=== PATIENT | female | born 1935 | race Hispanic/Latino ===

== ENCOUNTER 2016-12-12 08:32 | Day surgery (SDC) | payer MEDICARE ==
[2016-05-02 10:02] VITALS: BMI 23.6
[2016-12-12 10:06] VITALS: TEMP 97
[2016-12-12] MEDS ORDERED: Propofol 10 mg/ml Inj (20 ML) ONE ×2 (12:20→12:30)
[2016-12-12 13:11] VITALS: O2SAT 100
[2016-12-12 14:09] VITALS: BP 158/75; PULSE 81; RESP 19
== END 2016-12-12 13:45 | disposition home or self-care (01) ==
LOC: C.ENDO 08:32
PROVIDERS: ATTEND Internal Medicine Gastroenterology
DX: K57.90 Diverticulosis of intestine, part unspecified, without perforation or abscess without bleeding (principal); K64.8 Other hemorrhoids
CPT/HCPCS: 45378; J2704

== ENCOUNTER 2018-09-08 12:03 | Inpatient (IN) | payer MEDICARE ==
[2018-09-08 12:03] VITALS: BMI 23.6
[2018-09-08] MEDS ORDERED: Sodium Chloride 0.9% 500 ML IV ONE ×2 (12:46→13:04)
[2018-09-08 12:53] LABS: BASO # 0.1 K/uL (0.0-0.2); BASO % 0.4 % (0.0-2.0); EOS # 0.1 K/uL (0.0-0.7); EOS % 1.1 % (0.0-4.0); HEMOGLOBIN 9.1 g/dL (11.0-16.0); LYMPH # 0.8 K/uL (1.0-4.3); LYMPH % 6.4 % (20.0-40.0); MEAN CELL VOLUME 90.4 fL (81.0-99.0); MEAN CORPUSCULAR HGB CONC 34.3 g/dL (33.0-37.0); MEAN PLATELET VOLUME 8.8 fL (7.2-11.7); MONO # 1.4 K/uL (0.0-0.8); MONO % 10.7 % (0.0-10.0); NEUT # 10.5 K/uL (1.8-7.0); NEUT % 81.4 % (50.0-75.0); PLATELET COUNT 375 K/uL (130-400); RBC 2.93 Mil/uL (3.80-5.20); RED CELL DISTRIBUTION WIDTH 13.5 % (11.5-14.5)
[2018-09-08 13:06] LABS: ALBUMIN 3.1 g/dL (3.5-5.0)
[2018-09-08 13:54] LABS: BANDS 17 % (0-2); EOSINOPHIL 1 % (0-4); LYMPHOCYTE 9 % (20-40); MONOCYTE 9 % (0-10); NEUTROPHIL 64 % (50-75); TOTAL CELLS COUNTED 100
[2018-09-08 13:55] LABS: PLATELET ESTIMATE NORMAL (NORMAL)
[2018-09-08 13:56] LABS: LARGE PLATELETS PRESENT; TOXIC GRANULATION PRESENT
--- NOTE | 2018-09-08 14:01 | C.PDOC ---
History Of Present Illness 83-year-old female is brought to the ED by family for evaluation of diarrhea that has been intermittent over the past 6 weeks, but worse over the past 3 days. As per family, patient has been having constant diarrhea, and has shown a decrease in appetite and weight loss. Patient was evaluated by her GI doctor, Dr. Cardona, who collected a stool sample, of which the results are still pending. Patient states her diarrhea is often liquid-like with associated abdominal cramping and intermittent GI bleeding in her stool. Patient and family deny fever, chills, recent travel, recent antibiotics use. Time Seen by Provider: 09/08/18 12:54 Chief Complaint (Nursing): Abdominal Pain History Per: Patient, Family History/Exam Limitations: no limitations Onset/Duration Of Symptoms: Intermittent Episodes Current Symptoms Are (Timing): Worse Quality Of Discomfort: Cramping Associated Symptoms: Diarrhea. denies: Fever, Chills Past Medical History Reviewed: Historical Data, Nursing Documentation, Vital Signs Vital Signs: Last Vital Signs Temp 98.4 F 09/08/18 12:08 Pulse 80 09/08/18 12:08 Resp 18 09/08/18 12:08 BP 94/58 L 09/08/18 12:08 Pulse Ox 99 09/08/18 12:08 Primary Care Provider: Bren Munguia - Medical History PMH: Atrial Fibrillation, Colonic Polyps, Diverticulitis, HTN, Osteoporosis Denies: Chronic Kidney Disease Surgical History: No Surg Hx - [facility] Procedures COLONOSCOPY (09/02/02) Family History: States: Unknown Family Hx - Social History Hx Alcohol Use: No Hx Substance Use: No - Immunization History Hx Tetanus Toxoid Vaccination: No Hx Influenza Vaccination: Yes Hx Pneumococcal Vaccination: No Review Of Systems Constitutional: Positive for: Weight loss, Other (decreased appetite ). Negative for: Fever, Chills Gastrointestinal: Positive for: Diarrhea, Other (GI bleeding in stool ) Physical Exam - Physical Exam Appears: Non-toxic, No Acute Distress, Other (thin-appearing ) Skin: Warm, Dry, Pale Head: Atraumatic, Normacephalic Eye(s): bilateral: Normal Inspection Oral Mucosa: Dry Neck: Normal ROM, Supple Chest: Symmetrical, No Deformity, No Tenderness Cardiovascular: Rhythm Regular, No Murmur Respiratory: Normal Breath Sounds, No Rales, No Rhonchi, No Wheezing Gastrointestinal/Abdominal: Bowel Sounds (active), Soft, No Tenderness, No Guarding, No Rebound Back: Normal Inspection, No CVA Tenderness, No Vertebral Tenderness, No Paraspinal Tenderness Extremity: Normal ROM, No Tenderness, Capillary Refill (less than 2 seconds ), No Swelling Neurological/Psych: Oriented x3, Normal Speech, Normal Cognition Gait: Steady ED Course And Treatment - Laboratory Results Result Diagrams: 09/08/18 12:49 09/08/18 12:49 Lab Results: Total Bilirubin 0.4 mg/dL (0.2-1.3) 09/08/18 12:49 AST 19 U/L (14-36) 09/08/18 12:49 ALT 19 U/L (9-52) 09/08/18 12:49 Alkaline Phosphatase 63 U/L (38-126) 09/08/18 12:49 Total Protein 6.1 g/dL (6.3-8.3) L 09/08/18 12:49 Albumin 3.1 g/dL (3.5-5.0) L 09/08/18 12:49 Globulin 3.0 gm/dL (2.2-3.9) 09/08/18 12:49 Albumin/Globulin Ratio 1.0 (1.0-2.1) 09/08/18 12:49 O2 Sat by Pulse Oximetry: 99 (on RA) Pulse Ox Interpretation: Normal Medical Decision Making Medical Decision Making: Progress: Bloodwork, urinalysis, CT A/P, CXR, EKG ordered and reviewed. IV Fluids given. 15:[address] Madison, who is requesting to give patient zosyn and flagyl. Dr. Madison agrees to admit patient. The case was discussed with Dr. Cardona (GI doc) who states to give the patient Vanco 125mg PO QID and he will consult on the patient. Disposition - Disposition Disposition: HOSPITALIZED Disposition Time: 16:25 Condition: GUARDED - POA Present On Arrival: None - Clinical Impression Clinical Impression: Colitis, Dehydration, Diarrhea - PA / SCIENTIFIC GLASS BLOWER / Resident Statement MD/DO has reviewed & agrees with the documentation as recorded. - Scribe Statement The provider has reviewed the documentation as recorded by the Scribe (Shila Ray) All medical record entries made by the Scribe were at my direction and personally dictated by me. I have reviewed the chart and agree that the record accurately reflects my personal performance of the history, physical exam, medical decision making, and the department course for this patient. I have also personally directed, reviewed, and agree with the discharge instructions and disposition.
[2018-09-08 14:27] LABS: VENOUS BLOOD GAS PCO2 43 mmHg (40-60); VENOUS BLOOD GAS PO2 27 mm/Hg (30-55); VENOUS BLOOD PH 7.35 (7.32-7.43)
[2018-09-08] MEDS ORDERED: Sodium Chloride 0.9% 1,000 ML IV ONE (14:39)
[2018-09-08] MEDS ORDERED: Sodium Chloride 0.9% 1,000 ML ONE ×2 (15:28→17:14)
[2018-09-08] MEDS ORDERED: metroNIDAZOLE IV 500 mg/100 ml 500 MG/100 ML BAG IVPB STA (15:39)
[2018-09-08] MEDS ORDERED: Piperacill/Tazo 2.25gm in Dex 2.25 GM/50 ML BAG IVPB STA (15:39)
--- NOTE | 2018-09-08 15:59 | CT ---
Date of service: 09/08/2018 PROCEDURE: CT Abdomen and Pelvis without intravenous contrast HISTORY: diffuse abd pain, diarrhea COMPARISON: 01/17/2017 TECHNIQUE: Technique. Contrast dose: Radiation dose: Total exam DLP = 331.04 mGy-cm. This CT exam was performed using one or more of the following dose reduction techniques: Automated exposure control, adjustment of the mA and/or kV according to patient size, and/or use of iterative reconstruction technique. FINDINGS: LOWER THORAX: Unremarkable. LIVER: Unremarkable. No gross lesion or ductal dilatation. GALLBLADDER AND BILE DUCTS: Unremarkable. PANCREAS: Unremarkable. No gross lesion or ductal dilatation. SPLEEN: Unremarkable. ADRENALS: Unremarkable. No mass. KIDNEYS AND URETERS: Unremarkable. No hydronephrosis. No solid mass. VASCULATURE: Unremarkable. No aortic aneurysm. No aortic atherosclerotic calcification or mural plaque present. BOWEL: Diffuse mild mural thickening of the left colon with luminal narrowing probably representing colitis. APPENDIX: Unremarkable. Normal appendix. PERITONEUM: Unremarkable. No free fluid. No free air. LYMPH NODES: Unremarkable. No enlarged lymph nodes. BLADDER: Unremarkable. REPRODUCTIVE: Unremarkable. BONES: No acute fracture. OTHER FINDINGS: None. IMPRESSION: Diffuse mild mural thickening of the left colon with luminal narrowing probably representing colitis.
[2018-09-08] MEDS ORDERED: metroNIDAZOLE IV 500 mg/100 ml 500 MG/100 ML BAG ONE (16:14)
--- NOTE | 2018-09-08 16:15 | CP.PCM.HP ---
<Gavino Yen - Last Filed: 09/08/18 18:22> History of Present Illness - History of Present Illness History of Present Illness: PGY1 H and P for Dr. Madison Patient is an 83-year-old female with a past medical history of HTN, paroxysmal a fib, seronegative arthritis, diverticulosis, colitis, and hemorrhoids who presents to the emergency department with her daughter for 2 months of diarrhea that has worsened over the past 3 days. Recently, pt reports she has not been able to make it to the bathroom and loses control of her bowels. Patient denies any sick contacts, recent travel or antibiotics use. Patient had a colonscopy 2 years ago which showed diverticulosis and hemorrhoids but was unable to assess further due to poor prep. Patient endorses weight loss over the past few weeks, asspciated with weakness, diarrhea, crampy lower abdominal pain. She endorses decreased urine output for one day. The patient denies fever, chills, headache, lightheadedness, dizziness, night sweats, diaphoresis, syncope, falls, chest pain, palpitations, SOB, cough, dyspnea, nausea, vomiting, constipation, melena, hematochezia, dysuria, hematuria, burning on urination, numbness, and tingling. Pt saw blood dripping after bowel movement 2 months ago, but has resolved since she was given preparation H by her GI Dr. Cardona. The patient currently denies any blood in the stool or black, tarry stools. The patients diarrhea improves with Imodium. The patient did not take her BP medications this morning. Patient had issues with insurance regarding Eliquis, and was going to start Aspirin but has not started due to bleeding. PMH: HTN, paroxysmal a fib confirmed by holter monitor, seronegative arthritis, diverticulosis, colitis, and hemorrhoids Past surgical history: JHOANA about 30 years ago Meds: Amlodipine 5 mg, Valsartan 160 mg PO daily, Metoprolol 25 mg PO QD, Ferrous sulfate 325 mg PO BID, Methotrexate (dose unknown), Calcium, Vitamin D, Folic acid Allergies: denies Family History: unsure Social history: denies tobacco or illicit drugs, occasionally drinks wine with dinner. Lives at home with 55-year-old son. Patient does not use any assistive devices. Patients recently in April and daughter endorses increased sleep and memory loss since. PMD: Dr. Munguia GI: Dr. Cardona Cardio: Dr. Rosalio Coppola Heme: Dr. Ronald Ray Rheum: Dr. Jim Present on Admission - Present on Admission Any Indicators Present on Admission: No Review of Systems - Review of Systems All systems: reviewed and no additional remarkable complaints except (as per HPI) Past Patient History - Past Medical History & Family History Past Medical History?: Yes - Past Social History Smoking Status: Never Smoked - CARDIAC Hx Atrial Fibrillation: Yes Hx Hypertension: Yes - PULMONARY Hx Respiratory Disorders: No - NEUROLOGICAL Hx Neurological Disorder: No - HEENT Hx HEENT Problems: No - RENAL Hx Chronic Kidney Disease: No - ENDOCRINE/METABOLIC Hx Endocrine Disorders: No - HEMATOLOGICAL/ONCOLOGICAL Hx Blood Disorders: No - INTEGUMENTARY Hx Dermatological Problems: No - MUSCULOSKELETAL/RHEUMATOLOGICAL Hx Osteoporosis: Yes - GASTROINTESTINAL Hx Diverticulitis: Yes - GENITOURINARY/GYNECOLOGICAL Hx Genitourinary Disorders: No - PSYCHIATRIC Hx Substance Use: No - SURGICAL HISTORY Hx Surgeries: Yes Hx Angioplasty: Yes Hx Hysterectomy: Yes - ANESTHESIA Hx Anesthesia: Yes Hx Anesthesia Reactions: No Hx Malignant Hyperthermia: No Meds Allergies/Adverse Reactions: Allergies Allergy/AdvReac Type Severity Reaction Status Date / Time No Known Allergies Allergy Verified 09/08/18 12:18 Physical Exam - Constitutional Appears: Non-toxic, No Acute Distress - Head Exam Head Exam: ATRAUMATIC, NORMAL INSPECTION - Eye Exam Eye Exam: EOMI Additional comments: (+) conjunctival pallor - ENT Exam ENT Exam: Mucous Membranes Dry - Neck Exam Neck exam: Positive for: Normal Inspection - Respiratory Exam Respiratory Exam: Clear to Auscultation Bilateral. absent: Rales, Rhonchi, Wheezes, Respiratory Distress, Stridor - Cardiovascular Exam Cardiovascular Exam: REGULAR RHYTHM, +S1, +S2. absent: Tachycardia, Irregular Rhythm, Rubs - GI/Abdominal Exam GI & Abdominal Exam: Normal Bowel Sounds, Soft. absent: Distended, Firm, Guarding, Rebound, Rigid, Tenderness - Rectal Exam Rectal Exam: Deferred - Extremities Exam Extremities exam: Positive for: normal capillary refill, normal inspection, pedal pulses present. Negative for: calf tenderness, pedal edema - Back Exam Back exam: NORMAL INSPECTION. absent: CVA tenderness (L), CVA tenderness (R) - Neurological Exam Neurological exam: Alert, Oriented x3 - Psychiatric Exam Psychiatric exam: Normal Affect, Normal Mood - Skin Skin Exam: Dry, Normal Color, Warm Additional comments: (+) decreased skin turgor Results - Vital Signs Recent Vital Signs: Last Vital Signs Temp 99.3 F 09/08/18 14:30 Pulse 83 09/08/18 14:30 Resp 18 09/08/18 14:30 BP 119/70 09/08/18 14:30 Pulse Ox 99 09/08/18 15:41 - Labs Result Diagrams: 09/08/18 12:49 09/08/18 12:49 Labs: Laboratory Results - last 24 hr 09/08/18 09/08/18 09/08/18 12:49 12:49 14:20 WBC 13.0 H RBC 2.93 L Hgb 9.1 L Hct 26.5 L MCV 90.4 MCH 31.0 MCHC 34.3 RDW 13.5 Plt Count 375 MPV 8.8 Neut % (Auto) 81.4 H Lymph % (Auto) 6.4 L Carlton % (Auto) 10.7 H Eos % (Auto) 1.1 Baso % (Auto) 0.4 Neut # (Auto) 10.5 H Lymph # (Auto) 0.8 L Carlton # (Auto) 1.4 H Eos # (Auto) 0.1 Baso # (Auto) 0.1 Neutrophils % (Manual) 64 Band Neutrophils % 17 H* Lymphocytes % (Manual) 9 L Monocytes % (Manual) 9 Eosinophils % (Manual) 1 Toxic Granulation Present Dohle Bodies Present Platelet Estimate Normal Large Platelets Present RBC Morphology Normal pO2 27 L VBG pH 7.35 VBG pCO2 43 VBG HCO3 22.0 VBG Total CO2 25.0 VBG O2 Sat (Calc) 40.7 VBG Base Excess -2.0 L VBG Potassium 3.6 Glucose 87 Lactate 1.1 Sodium 128 L 132.0 Potassium 3.9 Chloride 94 L 103.0 Carbon Dioxide 24 Anion Gap 14 BUN 39 H Creatinine 1.7 H Est GFR ( Amer) 35 Est GFR (Non-Af Amer) 29 Random Glucose 101 Calcium 8.0 L Phosphorus 3.2 Magnesium 1.9 Total Bilirubin 0.4 AST 19 ALT 19 Alkaline Phosphatase 63 Total Protein 6.1 L Albumin 3.1 L Globulin 3.0 Albumin/Globulin Ratio 1.0 Venous Blood Potassium 3.6 Assessment & Plan - Assessment and Plan (Free Text) Assessment: This is an 83-year-old female with a past medical history of HTN, paroxysmal a fib, seronegative arthritis, diverticulosis, colitis, and hemorrhoids who presents to the emergency department with her daughter for 2 months of diarrhea that has worsened over the past 3 days. Plan: Colitis, acute Hx diverticulitis, colitis Leukocytosis at 13, bandemia of 17 on admission. Afebrile, no tachycardia. Lactate is 1.[address] shows diffuse mild mural thickening of the left colon with luminal narrowing probably representing colitis. Received Flagyl 500 mg IVPB x1, Zosyn 2.25 g IVPB x1 in the ED. Renally dosed Zosyn 2.25 g IVPB q8h (09/08) Lactobacillus BID GI, Dr. Cardona, consulted. F/u lactoferrin, ova and parasite x3, FOBT, stool culture, c. diff, procalcitonin, stool leukocytes, Blood culture x2 SUMA, acute Oliguria, acute Likely secondary to hypotension/prerenal BUN/Cr is 94/1.7 on admission NS IVF as below F/u bladder scan qshift with order to straight cath if retaining urine F/u BMP at 2200 Hypovolemia hyponatremia 128 on admission NS IVF 1L Bolus x2 in the ED, continue NS IVF at 75 mL/hr Fall precautions Hold home valsartan F/u BMP as above Dehydration, secondary to diarrhea due to colitis Pt hypotensive 90s SBP 50s DBP in the ED 100 SBP s/p fluids NS IVF as above Hold home valsartan, amlodipine, metoprolol Continue to monitor Paroxysmal Afib, chronic EKG shows NSR Hold home Metoprolol in light of hypotension CHADSVASC2 score is 2; HASBLED is 1 No ASA as per family because pt is had bleeding hemorrhoids approximately 3 months ago No eliquis due to insurance issues Anemia, chronic Hgb/Hct is 9.1/26.5 on admission (baseline is 9-10) Hold home ferrous sulfate in light of acute infection Continue home Folate 1 mg PO daily F/u FOBT x2 Acute stress disorder, acute Pt's in April. Daughter reports pt has had decreased PO intake and increased sleep since his passing. Continue to monitor May consider Psychiatry consult PPx: GI: not indicated VTE: chemical ppx contraindicated due to anemia, SCDs Lactobacillus Case discussed with Dr. Los Yen PGY1 <Zina Madison V - Last Filed: 09/08/18 23:13> Results - Vital Signs Recent Vital Signs: Last Vital Signs Temp 98.7 F 09/08/18 19:08 Pulse 88 09/08/18 19:08 Resp 20 09/08/18 19:08 BP 107/64 09/08/18 19:08 Pulse Ox 98 09/08/18 19:08 - Labs Result Diagrams: 09/08/18 12:49 09/08/18 12:49 Labs: Laboratory Results - last 24 hr 09/08/18 09/08/18 09/08/18 12:49 12:49 14:20 WBC 13.0 H RBC 2.93 L Hgb 9.1 L Hct 26.5 L MCV 90.4 MCH 31.0 MCHC 34.3 RDW 13.5 Plt Count 375 MPV 8.8 Neut % (Auto) 81.4 H Lymph % (Auto) 6.4 L Carlton % (Auto) 10.7 H Eos % (Auto) 1.1 Baso % (Auto) 0.4 Neut # (Auto) 10.5 H Lymph # (Auto) 0.8 L Carlton # (Auto) 1.4 H Eos # (Auto) 0.1 Baso # (Auto) 0.1 Neutrophils % (Manual) 64 Band Neutrophils % 17 H* Lymphocytes % (Manual) 9 L Monocytes % (Manual) 9 Eosinophils % (Manual) 1 Toxic Granulation Present Dohle Bodies Present Platelet Estimate Normal Large Platelets Present RBC Morphology Normal PT INR APTT pO2 27 L VBG pH 7.35 VBG pCO2 43 VBG HCO3 22.0 VBG Total CO2 25.0 VBG O2 Sat (Calc) 40.7 VBG Base Excess -2.0 L VBG Potassium 3.6 Glucose 87 Lactate 1.1 Crit Value Called To Crit Value Called By Crit Value Read Back Blood Gas Notified Time Sodium 128 L 132.0 Potassium 3.9 Chloride 94 L 103.0 Carbon Dioxide 24 Anion Gap 14 BUN 39 H Creatinine 1.7 H Est GFR ( Amer) 35 Est GFR (Non-Af Amer) 29 Random Glucose 101 Calcium 8.0 L Phosphorus 3.2 Magnesium 1.9 Total Bilirubin 0.4 AST 19 ALT 19 Alkaline Phosphatase 63 Total Protein 6.1 L Albumin 3.1 L Globulin 3.0 Albumin/Globulin Ratio 1.0 Procalcitonin Venous Blood Potassium 3.6 Urine Color Urine Clarity Urine pH Ur Specific Rebuck Urine Protein Urine Glucose (UA) Urine Ketones Urine Blood Urine Nitrate Urine Bilirubin Urine Urobilinogen Ur Leukocyte Esterase Urine WBC (Auto) Urine RBC (Auto) Ur Squamous Epith Cells Hyaline Casts 09/08/18 09/08/18 09/08/18 16:38 17:30 17:30 WBC RBC Hgb Hct MCV MCH MCHC RDW Plt Count MPV Neut % (Auto) Lymph % (Auto) Carlton % (Auto) Eos % (Auto) Baso % (Auto) Neut # (Auto) Lymph # (Auto) Carlton # (Auto) Eos # (Auto) Baso # (Auto) Neutrophils % (Manual) Band Neutrophils % Lymphocytes % (Manual) Monocytes % (Manual) Eosinophils % (Manual) Toxic Granulation Dohle Bodies Platelet Estimate Large Platelets RBC Morphology PT 15.4 H INR 1.4 APTT 31.8 pO2 30 VBG pH 7.35 VBG pCO2 41 VBG HCO3 21.5 VBG Total CO2 23.9 VBG O2 Sat (Calc) 49.4 VBG Base Excess -2.9 L VBG Potassium 6.2 H* Glucose 85 Lactate 1.1 Crit Value Called To Rosy srivasatva rn Crit Value Called By Aiden Crit Value Read Back Y Blood Gas Notified Time 1642 Sodium 130.0 L Potassium Chloride 105.0 Carbon Dioxide Anion Gap BUN Creatinine Est GFR ( Amer) Est GFR (Non-Af Amer) Random Glucose Calcium Phosphorus Magnesium Total Bilirubin AST ALT Alkaline Phosphatase Total Protein Albumin Globulin Albumin/Globulin Ratio Procalcitonin 0.16 L Venous Blood Potassium 6.2 H* Urine Color Urine Clarity Urine pH Ur Specific Rebuck Urine Protein Urine Glucose (UA) Urine Ketones Urine Blood Urine Nitrate Urine Bilirubin Urine Urobilinogen Ur Leukocyte Esterase Urine WBC (Auto) Urine RBC (Auto) Ur Squamous Epith Cells Hyaline Casts 09/08/18 22:06 WBC RBC Hgb Hct MCV MCH MCHC RDW Plt Count MPV Neut % (Auto) Lymph % (Auto) Carlton % (Auto) Eos % (Auto) Baso % (Auto) Neut # (Auto) Lymph # (Auto) Carlton # (Auto) Eos # (Auto) Baso # (Auto) Neutrophils % (Manual) Band Neutrophils % Lymphocytes % (Manual) Monocytes % (Manual) Eosinophils % (Manual) Toxic Granulation Dohle Bodies Platelet Estimate Large Platelets RBC Morphology PT INR APTT pO2 VBG pH VBG pCO2 VBG HCO3 VBG Total CO2 VBG O2 Sat (Calc) VBG Base Excess VBG Potassium Glucose Lactate Crit Value Called To Crit Value Called By Crit Value Read Back Blood Gas Notified Time Sodium Potassium Chloride Carbon Dioxide Anion Gap BUN Creatinine Est GFR ( Amer) Est GFR (Non-Af Amer) Random Glucose Calcium Phosphorus Magnesium Total Bilirubin AST ALT Alkaline Phosphatase Total Protein Albumin Globulin Albumin/Globulin Ratio Procalcitonin Venous Blood Potassium Urine Color Yellow Urine Clarity Hazy Urine pH 5.0 Ur Specific Rebuck 1.017 Urine Protein Negative Urine Glucose (UA) Normal Urine Ketones Trace Urine Blood Negative Urine Nitrate Negative Urine Bilirubin Negative Urine Urobilinogen Normal Ur Leukocyte Esterase 1+ H Urine WBC (Auto) 19 H Urine RBC (Auto) 3 Ur Squamous Epith Cells 7 H Hyaline Casts 6-10 H Attending/Attestation - Attestation I have personally seen and examined this patient.: Yes I have fully participated in the care of the patient.: Yes I have reviewed all pertinent clinical information: Yes Notes (Text): This is an 83-year-old with prior history of seronegative rheumatoid arthritis, prior history of diverticulitis and history of paroxysmal atrial fibrillation is currently not on any Eliquis or aspirin due to recent rectal bleeding. Patient noted of chronic diarrhea for about 6 weeks and has worsened over the past 2days she reports that she is been having imbalance and ends up able to making the bathroom and pooping on herself. Patient has been doing her regular diet is mainly Chinese which includes salads and cold cuts. Patient lives with her son but also has 4 other children as well who are involved in her life. Patient's also recently passed she reports she has good social system in terms of community from her hindu and from her family. Per review of EMR patient has had chronic anemia when she takes iron supplementation has had a endoscopy by Dr. Brendan concepcion in the past as well. Updated assessment and plan as written by the resident Assessment/plan 1. Colitis, acute Prior history Hx diverticulitis, colitis On admission leukocytosis at 13, bandemia of 17 on admission. Afebrile, no tachycardia. Lactate is 1.[address] shows diffuse mild mural thickening of the left colon with luminal narrowing probably representing colitis. Received Flagyl 500 mg IVPB x1, Zosyn 2.25 g IVPB x1 in the ED. Renally dosed Zosyn 2.25 g IVPB q8h (09/08) Lactobacillus BID GI, Dr. Cardona, consulted. Patient's GI GI doorperson F/u lactoferrin, ova and parasite x3, FOBT, stool culture, c. diff, procalcitonin, stool leukocytes, Blood culture x2 She does have a prior history of rectal bleeding likely hemorrhoidal when she is Preparation H 2. SUMA, acute Oliguria, acute Likely secondary to dehydration secondary to diarrhea BUN/Cr is 94/1.7 on admission He has received 2 L boluses we will continue maintenance fluids NS IVF as below F/u bladder scan qshift with order to straight cath if retaining urine F/u BMP at 2200 improvement in creatinine 3. Hypovolemia hyponatremia Patient appears clinically dehydrated 128 on admission NS IVF 1L Bolus x2 in the ED, continue NS IVF at 75 mL/hr We will continue IV maintenance fluids Fall precautions Hold home valsartan F/u BMP as above 4. Dehydration, secondary to diarrhea due to colitis Pt hypotensive 90s SBP 50s DBP in the ED 100 SBP s/p fluids NS IVF as above Hold home valsartan, amlodipine, metoprolol Continue to monitor 5. Paroxysmal Afib, chronic Dr. Coppola as an outpatient when she was diagnosed with paroxysmal atrial fibrillation based on noted complaint of palpitations at [facility] ent EKG shows NSR Hold home Metoprolol in light of hypotension. May need to restart low-dose metoprolol pending blood pressure CHADSVASC2 score is 2; HASBLED is 1 No ASA as per family because pt is had bleeding hemorrhoids approximately 3 months ago No eliquis due to insurance issues To follow-up with GI to see when patient will be able to use at least aspirin 6. Anemia, chronic Hgb/Hct is 9.1/26.5 on admission (baseline is 9-10) Hold home ferrous sulfate in light of acute infection Continue home Folate 1 mg PO daily F/u FOBT x2 Check ferritin and iron studies and reticulocyte count 7. Bereavement; acute stress disorder, acute Pt's in April. Daughter reports pt has had decreased PO intake and increased sleep since his passing. Continue to monitor Pastoral care consult May consider Psychiatry consult 8. PPx: GI: Pepcid 20 mg IV twice daily VTE: chemical ppx contraindicated due to anemia, SCDs Lactobacillus 1 tab p.o. twice daily
[2018-09-08 16:42] LABS: VENOUS BLOOD GAS BASE EXCESS -2.9 mmol/L (0.0-2.0); VENOUS BLOOD GAS PCO2 41 mmHg (40-60); VENOUS BLOOD GAS PO2 30 mm/Hg (30-55); VENOUS BLOOD PH 7.35 (7.32-7.43)
--- NOTE | 2018-09-08 16:49 | RAD ---
HISTORY: Sepsis Patient COMPARISON: None available. TECHNIQUE: Chest, one view. FINDINGS: LUNGS: No focal consolidation. Please note that chest x-ray has limited sensitivity for the detection of pulmonary masses. PLEURA: No significant pleural effusion identified. No definite pneumothorax . CARDIOVASCULAR: Cardiomegaly. Atherosclerotic calcifications present. OSSEOUS STRUCTURES: Demineralization. Degenerative changes. VISUALIZED UPPER ABDOMEN: Unremarkable. OTHER FINDINGS: None. IMPRESSION: No focal consolidation. Cardiomegaly. Atherosclerotic calcifications present.
[2018-09-08] MEDS ORDERED: Sodium Chloride 0.9% 1,000 ML IV SCH (17:15)
[2018-09-08 17:42] LABS: INR 1.4; PARTIAL THROMBOPLASTIN TIME 31.8 SECONDS (21-34); PROTHROMBIN TIME 15.4 SECONDS (9.7-12.2)
[2018-09-08] MEDS: Sodium Chloride 0.9% 1,000 ML IV SCH (17:50)
[2018-09-08] MEDS ORDERED: Vancomycin Hydrochloride 125 mg Capsule (Oral) PO SCH (18:00)
[2018-09-08] MEDS: Lactobacillus Acidophilus 500 MU Cap PO SCH (18:38)
[2018-09-08 19:08] VITALS: RESP 20
[2018-09-08 22:40] LABS: SQUAMOUS EPITHIAL 7 /hpf (0-5); URINE BILIRUBIN NEGATIVE (NEGATIVE); URINE BLOOD NEGATIVE (NEGATIVE); URINE CLARITY Hazy (Clear); URINE GLUCOSE (UA) NORMAL (Normal); URINE LEUKOCYTE ESTERASE 1+ Leu/uL (Negative); URINE PROTEIN NEGATIVE (NEGATIVE); URINE UROBILINOGEN NORMAL mg/dL (0.2-1.0)
[2018-09-08 22:41] LABS: URINE COLOR YELLOW (YELLOW)
[2018-09-08 23:58] LABS: BLOOD UREA NITROGEN 34 mg/dL (7-17); CALCIUM 7.3 mg/dl (8.6-10.4); GFR NON-AFRICAN AMERICAN 36
[2018-09-09 01:29] LABS: FOLATE > 20.0 ng/mL
[2018-09-09] MEDS: Piperacill/Tazo 2.25gm in Dex 2.25 GM/50 ML BAG IVPB SCH ×3 (01:44→17:55)
[2018-09-09] MEDS: Sodium Chloride 0.9% 1,000 ML IV SCH ×3 (06:40→21:14)
[2018-09-09 08:31] LABS: ALB/GLOB RATIO 0.9 (1.0-2.1); ALBUMIN 2.6 g/dL (3.5-5.0); CALCIUM 7.3 mg/dl (8.6-10.4)
[2018-09-09 08:40] LABS: IRON 20 ug/dL (37-170)
--- NOTE | 2018-09-09 08:44 | CP.PCM.CON ---
<Hayley Jones - Last Filed: 09/09/18 08:46> History of Present Illness - History of Present Illness History of Present Illness: GI Fellow PGY5 Consult Note This is a 83-year-old female with a past medical history of HTN, paroxysmal a fib, seronegative arthritis, diverticulosis, colitis, and hemorrhoids who presents to the emergency department for 2 months of diarrhea that has worsened over the past 3 days. Recently, pt reports she has not been able to make it to the bathroom and loses control of her bowels. Patient denies any sick contacts, recent travel or antibiotics use. Patient had a 2 colonoscopies in 2017 which showed diverticulosis and hemorrhoids but was unable to assess further due to poor prep. Patient endorses weight loss over the past few weeks, associated with weakness, diarrhea, crampy lower abdominal pain. She denies constipation, melena, hematochezia. ROS:A 12pt ROS was negative except as above PMH:As stated above Past surgical history: JHOANA about 30 years ago Family History: unsure Social history: denies tobacco or illicit drugs, occasionally drinks wine with dinner Past Patient History - Past Medical History & Family History Past Medical History?: Yes - Past Social History Smoking Status: Never Smoked - CARDIAC Hx Cardiac Disorders: Yes Hx Atrial Fibrillation: Yes Hx Hypertension: Yes - PULMONARY Hx Respiratory Disorders: No - NEUROLOGICAL Hx Neurological Disorder: No - HEENT Hx HEENT Problems: No - RENAL Hx Chronic Kidney Disease: No - ENDOCRINE/METABOLIC Hx Endocrine Disorders: No - HEMATOLOGICAL/ONCOLOGICAL Hx Blood Disorders: No - INTEGUMENTARY Hx Dermatological Problems: No - MUSCULOSKELETAL/RHEUMATOLOGICAL Hx Musculoskeletal Disorders: Yes Hx Falls: No Hx Osteoporosis: Yes - GASTROINTESTINAL Hx Gastrointestinal Disorders: Yes Hx Diverticulitis: Yes - GENITOURINARY/GYNECOLOGICAL Hx Genitourinary Disorders: No - PSYCHIATRIC Hx Substance Use: No - SURGICAL HISTORY Hx Surgeries: Yes Hx Angioplasty: Yes Hx Hysterectomy: Yes - ANESTHESIA Hx Anesthesia: Yes Hx Anesthesia Reactions: No Hx Malignant Hyperthermia: No Has any member of the family had a problem w/ anesthesia?: No Meds Allergies/Adverse Reactions: Allergies Allergy/AdvReac Type Severity Reaction Status Date / Time No Known Allergies Allergy Verified 09/08/18 12:18 - Medications Medications: Current Medications Ergocalciferol (Drisdol 50,000 Intl Units Cap) 1 cap PO QWK [facility] Famotidine (Pepcid) 20 mg IVP DAILY [facility] Folic Acid (Folic Acid) 1 mg PO DAILY [facility] Sodium Chloride (Sodium Chloride 0.9%) 1,000 mls @ 75 mls/hr IV .[id number] [facility] Last Admin: 09/09/18 06:40 Dose: Not Given Piperacillin Sod/Tazobactam Sod (Zosyn 2.25 Gm Iv Premix) 2.25 gm in 50 mls @ 100 mls/hr IVPB Q8H [facility]; Protocol Last Admin: 09/09/18 01:44 Dose: 100 mls/hr Lactobacillus Acidophilus (Lactobacillus) 1 cap PO BID [facility] Last Admin: 09/08/18 18:38 Dose: Not Given Physical Exam - Constitutional Appears: Non-toxic, No Acute Distress - Head Exam Head Exam: ATRAUMATIC, NORMAL INSPECTION, NORMOCEPHALIC - Eye Exam Eye Exam: EOMI, Normal appearance, PERRL - ENT Exam ENT Exam: Mucous Membranes Moist, Normal Exam - Neck Exam Neck exam: Positive for: Full Rom, Normal Inspection - Respiratory Exam Respiratory Exam: Clear to Auscultation Bilateral, NORMAL BREATHING PATTERN - Cardiovascular Exam Cardiovascular Exam: REGULAR RHYTHM, RRR, +S1, +S2 - GI/Abdominal Exam GI & Abdominal Exam: Normal Bowel Sounds, Soft, Tenderness. absent: Distended, Organomegaly - Rectal Exam Rectal Exam: Deferred - Extremities Exam Extremities exam: Positive for: full ROM, normal inspection - Neurological Exam Neurological exam: Alert, Oriented x3 - Psychiatric Exam Psychiatric exam: Normal Affect, Normal Mood - Skin Skin Exam: Dry, Intact, Normal Color, Warm Results - Vital Signs Recent Vital Signs: Last Vital Signs Temp 97.9 F 09/09/18 07:00 Pulse 93 H 09/09/18 07:00 Resp 20 09/09/18 07:00 BP 105/60 09/09/18 07:00 Pulse Ox 97 09/09/18 07:00 - Labs Result Diagrams: 09/08/18 12:49 09/09/18 08:03 Labs: Laboratory Results - last 24 hr 09/08/18 09/08/18 09/08/18 12:49 12:49 14:20 WBC 13.0 H RBC 2.93 L Hgb 9.1 L Hct 26.5 L MCV 90.4 MCH 31.0 MCHC 34.3 RDW 13.5 Plt Count 375 MPV 8.8 Neut % (Auto) 81.4 H Lymph % (Auto) 6.4 L [place] % (Auto) 10.7 H Eos % (Auto) 1.1 Baso % (Auto) 0.4 Neut # (Auto) 10.5 H Lymph # (Auto) 0.8 L [place] # (Auto) 1.4 H Eos # (Auto) 0.1 Baso # (Auto) 0.1 Neutrophils % (Manual) 64 Band Neutrophils % 17 H* Lymphocytes % (Manual) 9 L Monocytes % (Manual) 9 Eosinophils % (Manual) 1 Toxic Granulation Present Dohle Bodies Present Platelet Estimate Normal Large Platelets Present RBC Morphology Normal Retic Count PT INR APTT pO2 27 L VBG pH 7.35 VBG pCO2 43 VBG HCO3 22.0 VBG Total CO2 25.0 VBG O2 Sat (Calc) 40.7 VBG Base Excess -2.0 L VBG Potassium 3.6 Glucose 87 Lactate 1.1 Crit Value Called To Crit Value Called By Crit Value Read Back Blood Gas Notified Time Sodium 128 L 132.0 Potassium 3.9 Chloride 94 L 103.0 Carbon Dioxide 24 Anion Gap 14 BUN 39 H Creatinine 1.7 H Est GFR ( Amer) 35 Est GFR (Non-Af Amer) 29 Random Glucose 101 Calcium 8.0 L Phosphorus 3.2 Magnesium 1.9 Iron Ferritin Total Bilirubin 0.4 AST 19 ALT 19 Alkaline Phosphatase 63 Total Protein 6.1 L Albumin 3.1 L Globulin 3.0 Albumin/Globulin Ratio 1.0 Vitamin B12 Folate Procalcitonin Venous Blood Potassium 3.6 Urine Color Urine Clarity Urine pH Ur Specific [place] Urine Protein Urine Glucose (UA) Urine Ketones Urine Blood Urine Nitrate Urine Bilirubin Urine Urobilinogen Ur Leukocyte Esterase Urine WBC (Auto) Urine RBC (Auto) Ur Squamous Epith Cells Hyaline Casts 09/08/18 09/08/18 09/08/18 16:38 17:30 17:30 WBC RBC Hgb Hct MCV MCH MCHC RDW Plt Count MPV Neut % (Auto) Lymph % (Auto) [place] % (Auto) Eos % (Auto) Baso % (Auto) Neut # (Auto) Lymph # (Auto) [place] # (Auto) Eos # (Auto) Baso # (Auto) Neutrophils % (Manual) Band Neutrophils % Lymphocytes % (Manual) Monocytes % (Manual) Eosinophils % (Manual) Toxic Granulation Dohle Bodies Platelet Estimate Large Platelets RBC Morphology Retic Count PT 15.4 H INR 1.4 APTT 31.8 pO2 30 VBG pH 7.35 VBG pCO2 41 VBG HCO3 21.5 VBG Total CO2 23.9 VBG O2 Sat (Calc) 49.4 VBG Base Excess -2.9 L VBG Potassium 6.2 H* Glucose 85 Lactate 1.1 Crit Value Called To Rosy srivastava rn Crit Value Called By Aiden Crit Value Read Back Y Blood Gas Notified Time 1642 Sodium 130.0 L Potassium Chloride 105.0 Carbon Dioxide Anion Gap BUN Creatinine Est GFR ( Amer) Est GFR (Non-Af Amer) Random Glucose Calcium Phosphorus Magnesium Iron Ferritin Total Bilirubin AST ALT Alkaline Phosphatase Total Protein Albumin Globulin Albumin/Globulin Ratio Vitamin B12 Folate Procalcitonin 0.16 L Venous Blood Potassium 6.2 H* Urine Color Urine Clarity Urine pH Ur Specific [place] Urine Protein Urine Glucose (UA) Urine Ketones Urine Blood Urine Nitrate Urine Bilirubin Urine Urobilinogen Ur Leukocyte Esterase Urine WBC (Auto) Urine RBC (Auto) Ur Squamous Epith Cells Hyaline Casts 09/08/18 09/08/18 09/09/18 22:06 23:15 08:03 WBC RBC Hgb Hct MCV MCH MCHC RDW Plt Count MPV Neut % (Auto) Lymph % (Auto) [place] % (Auto) Eos % (Auto) Baso % (Auto) Neut # (Auto) Lymph # (Auto) [place] # (Auto) Eos # (Auto) Baso # (Auto) Neutrophils % (Manual) Band Neutrophils % Lymphocytes % (Manual) Monocytes % (Manual) Eosinophils % (Manual) Toxic Granulation Dohle Bodies Platelet Estimate Large Platelets RBC Morphology Retic Count PT INR APTT pO2 VBG pH VBG pCO2 VBG HCO3 VBG Total CO2 VBG O2 Sat (Calc) VBG Base Excess VBG Potassium Glucose Lactate Crit Value Called To Crit Value Called By Crit Value Read Back Blood Gas Notified Time Sodium 131 L 133 Potassium 3.6 3.9 Chloride 101 102 Carbon Dioxide 20 L 22 Anion Gap 13 12 BUN 34 H 29 H Creatinine 1.4 H 1.3 H Est GFR ( Amer) 44 48 Est GFR (Non-Af Amer) 36 39 Random Glucose 85 73 Calcium 7.3 L 7.3 L Phosphorus 2.3 L Magnesium 2.0 Iron Ferritin 104.0 Total Bilirubin 0.2 AST 16 ALT 20 Alkaline Phosphatase 60 Total Protein 5.3 L Albumin 2.6 L Globulin 2.7 Albumin/Globulin Ratio 0.9 L Vitamin B12 > 1000 H Folate > 20.0 Procalcitonin Venous Blood Potassium Urine Color Yellow Urine Clarity Hazy Urine pH 5.0 Ur Specific [place] 1.017 Urine Protein Negative Urine Glucose (UA) Normal Urine Ketones Trace Urine Blood Negative Urine Nitrate Negative Urine Bilirubin Negative Urine Urobilinogen Normal Ur Leukocyte Esterase 1+ H Urine WBC (Auto) 19 H Urine RBC (Auto) 3 Ur Squamous Epith Cells 7 H Hyaline Casts 6-10 H 09/09/18 09/09/18 08:17 08:17 WBC RBC Hgb Hct MCV MCH MCHC RDW Plt Count MPV Neut % (Auto) Lymph % (Auto) [place] % (Auto) Eos % (Auto) Baso % (Auto) Neut # (Auto) Lymph # (Auto) [place] # (Auto) Eos # (Auto) Baso # (Auto) Neutrophils % (Manual) Band Neutrophils % Lymphocytes % (Manual) Monocytes % (Manual) Eosinophils % (Manual) Toxic Granulation Dohle Bodies Platelet Estimate Large Platelets RBC Morphology Retic Count 1.6 H PT INR APTT pO2 VBG pH VBG pCO2 VBG HCO3 VBG Total CO2 VBG O2 Sat (Calc) VBG Base Excess VBG Potassium Glucose Lactate Crit Value Called To Crit Value Called By Crit Value Read Back Blood Gas Notified Time Sodium Potassium Chloride Carbon Dioxide Anion Gap BUN Creatinine Est GFR ( Amer) Est GFR (Non-Af Amer) Random Glucose Calcium Phosphorus Magnesium Iron 20 L Ferritin Total Bilirubin AST ALT Alkaline Phosphatase Total Protein Albumin Globulin Albumin/Globulin Ratio Vitamin B12 Folate Procalcitonin Venous Blood Potassium Urine Color Urine Clarity Urine pH Ur Specific [place] Urine Protein Urine Glucose (UA) Urine Ketones Urine Blood Urine Nitrate Urine Bilirubin Urine Urobilinogen Ur Leukocyte Esterase Urine WBC (Auto) Urine RBC (Auto) Ur Squamous Epith Cells Hyaline Casts Assessment & Plan - Assessment and Plan (Free Text) Assessment: 1. Abdominal pain, diarrhea 2. Colitis 2. SUMA 3. Chronic Anemia Plan: On admission leukocytosis at 13, bandemia of 17 on admission. Afebrile, no tachycardia. Lactate is 1.[address] shows diffuse mild mural thickening of the left colon with luminal narrowing probably representing colitis. Pt on Zosyn F/u stool culture, c. diff, Blood culture x2 She does have a prior history of rectal bleeding likely hemorrhoids IVF for SUMA, monitor Cr, Likely secondary to dehydration secondary to diarrhea Anemia, with Hgb stable, no active GI bleeding Clear liquid diet Will need outpt colonoscopy in 6-8 wks after colitis Will continue to follow pt closely <Aidan Cardona - Last Filed: 09/09/18 17:49> Meds - Medications Medications: Current Medications Calcium/Vitamin D (Oscal-D 250 Mg-125 Units Tab) 1 tab PO DAILY [facility] Famotidine (Pepcid) 20 mg IVP DAILY [facility] Last Admin: 09/09/18 09:34 Dose: 20 mg Folic Acid (Folic Acid) 1 mg PO DAILY [facility] Last Admin: 09/09/18 09:35 Dose: 1 mg Sodium Chloride (Sodium Chloride 0.9%) 1,000 mls @ 75 mls/hr IV .[id number] [facility] Last Admin: 09/09/18 09:42 Dose: 75 mls/hr Piperacillin Sod/Tazobactam Sod (Zosyn 2.25 Gm Iv Premix) 2.25 gm in 50 mls @ 100 mls/hr IVPB Q8H [facility]; Protocol Last Admin: 09/09/18 09:39 Dose: 100 mls/hr Metronidazole (Flagyl) 500 mg in 100 mls @ 100 mls/hr IVPB Q8H [facility]; Protocol Last Admin: 09/09/18 11:59 Dose: 100 mls/hr Lactobacillus Acidophilus (Lactobacillus) 1 cap PO BID [facility] Last Admin: 09/09/18 09:35 Dose: 1 cap Results - Vital Signs Recent Vital Signs: Last Vital Signs Temp 98.3 F 09/09/18 16:09 Pulse 85 09/09/18 16:09 Resp 20 09/09/18 16:09 BP 113/66 09/09/18 16:09 Pulse Ox 95 09/09/18 16:09 - Labs Result Diagrams: 09/09/18 08:03 09/09/18 08:03 Labs: Laboratory Results - last 24 hr 09/08/18 09/08/18 09/08/18 08:17 16:17 17:30 WBC RBC Hgb Hct MCV MCH MCHC RDW Plt Count MPV Neut % (Auto) Lymph % (Auto) [place] % (Auto) Eos % (Auto) Baso % (Auto) Neut # (Auto) Lymph # (Auto) [place] # (Auto) Eos # (Auto) Baso # (Auto) Neutrophils % (Manual) Lymphocytes % (Manual) Monocytes % (Manual) Eosinophils % (Manual) Platelet Estimate Hypochromasia (manual) Poikilocytosis (manual Anisocytosis (manual) Retic Count Sodium Potassium Chloride Carbon Dioxide Anion Gap BUN Creatinine Est GFR ( Amer) Est GFR (Non-Af Amer) Random Glucose Serum Osmolality Calcium Phosphorus Magnesium Iron TIBC % Saturation 11 L Ferritin Total Bilirubin AST ALT Alkaline Phosphatase Total Protein Albumin Globulin Albumin/Globulin Ratio Vitamin B12 Folate Procalcitonin 0.16 L Urine Color Urine Clarity Urine pH Ur Specific [place] Urine Protein Urine Glucose (UA) Urine Ketones Urine Blood Urine Nitrate Urine Bilirubin Urine Urobilinogen Ur Leukocyte Esterase Urine WBC (Auto) Urine RBC (Auto) Ur Squamous Epith Cells Hyaline Casts Urine Osmolality Stool Occult Blood Stool Leukocytes, Qual Positive H C. difficile Ag & Toxin 09/08/18 09/08/18 09/09/18 22:06 23:15 04:59 WBC RBC Hgb Hct MCV MCH MCHC RDW Plt Count MPV Neut % (Auto) Lymph % (Auto) [place] % (Auto) Eos % (Auto) Baso % (Auto) Neut # (Auto) Lymph # (Auto) [place] # (Auto) Eos # (Auto) Baso # (Auto) Neutrophils % (Manual) Lymphocytes % (Manual) Monocytes % (Manual) Eosinophils % (Manual) Platelet Estimate Hypochromasia (manual) Poikilocytosis (manual Anisocytosis (manual) Retic Count Sodium 131 L Potassium 3.6 Chloride 101 Carbon Dioxide 20 L Anion Gap 13 BUN 34 H Creatinine 1.4 H Est GFR ( Amer) 44 Est GFR (Non-Af Amer) 36 Random Glucose 85 Serum Osmolality Calcium 7.3 L Phosphorus Magnesium Iron TIBC % Saturation Ferritin 104.0 Total Bilirubin AST ALT Alkaline Phosphatase Total Protein Albumin Globulin Albumin/Globulin Ratio Vitamin B12 > 1000 H Folate > 20.0 Procalcitonin Urine Color Yellow Urine Clarity Hazy Urine pH 5.0 Ur Specific [place] 1.017 Urine Protein Negative Urine Glucose (UA) Normal Urine Ketones Trace Urine Blood Negative Urine Nitrate Negative Urine Bilirubin Negative Urine Urobilinogen Normal Ur Leukocyte Esterase 1+ H Urine WBC (Auto) 19 H Urine RBC (Auto) 3 Ur Squamous Epith Cells 7 H Hyaline Casts 6-10 H Urine Osmolality Stool Occult Blood Stool Leukocytes, Qual C. difficile Ag & Toxin Negative 09/09/18 09/09/18 09/09/18 08:03 08:03 08:17 WBC 8.1 RBC 2.62 L Hgb 8.2 L Hct 23.9 L MCV 91.0 MCH 31.4 H MCHC 34.5 RDW 13.5 Plt Count 307 MPV 9.4 Neut % (Auto) 81.1 H Lymph % (Auto) 6.9 L [place] % (Auto) 9.6 Eos % (Auto) 1.9 Baso % (Auto) 0.5 Neut # (Auto) 6.5 Lymph # (Auto) 0.6 L [place] # (Auto) 0.8 Eos # (Auto) 0.2 Baso # (Auto) 0.0 Neutrophils % (Manual) 83 H Lymphocytes % (Manual) 7 L Monocytes % (Manual) 9 Eosinophils % (Manual) 1 Platelet Estimate Normal Hypochromasia (manual) Moderate Poikilocytosis (manual Slight Anisocytosis (manual) Slight Retic Count Sodium 133 Potassium 3.9 Chloride 102 Carbon Dioxide 22 Anion Gap 12 BUN 29 H Creatinine 1.3 H Est GFR ( Amer) 48 Est GFR (Non-Af Amer) 39 Random Glucose 73 Serum Osmolality Calcium 7.3 L Phosphorus 2.3 L Magnesium 2.0 Iron 20 L TIBC 180 L % Saturation 11 L Ferritin Total Bilirubin 0.2 AST 16 ALT 20 Alkaline Phosphatase 60 Total Protein 5.3 L Albumin 2.6 L Globulin 2.7 Albumin/Globulin Ratio 0.9 L Vitamin B12 Folate Procalcitonin Urine Color Urine Clarity Urine pH Ur Specific [place] Urine Protein Urine Glucose (UA) Urine Ketones Urine Blood Urine Nitrate Urine Bilirubin Urine Urobilinogen Ur Leukocyte Esterase Urine WBC (Auto) Urine RBC (Auto) Ur Squamous Epith Cells Hyaline Casts Urine Osmolality Stool Occult Blood Stool Leukocytes, Qual C. difficile Ag & Toxin 09/09/18 09/09/18 09/09/18 08:17 08:17 08:32 WBC RBC Hgb Hct MCV MCH MCHC RDW Plt Count MPV Neut % (Auto) Lymph % (Auto) [place] % (Auto) Eos % (Auto) Baso % (Auto) Neut # (Auto) Lymph # (Auto) [place] # (Auto) Eos # (Auto) Baso # (Auto) Neutrophils % (Manual) Lymphocytes % (Manual) Monocytes % (Manual) Eosinophils % (Manual) Platelet Estimate Hypochromasia (manual) Poikilocytosis (manual Anisocytosis (manual) Retic Count 1.6 H Sodium Potassium Chloride Carbon Dioxide Anion Gap BUN Creatinine Est GFR ( Amer) Est GFR (Non-Af Amer) Random Glucose Serum Osmolality 282 Calcium Phosphorus Magnesium Iron TIBC % Saturation Ferritin Total Bilirubin AST ALT Alkaline Phosphatase Total Protein Albumin Globulin Albumin/Globulin Ratio Vitamin B12 Folate Procalcitonin Urine Color Urine Clarity Urine pH Ur Specific [place] Urine Protein Urine Glucose (UA) Urine Ketones Urine Blood Urine Nitrate Urine Bilirubin Urine Urobilinogen Ur Leukocyte Esterase Urine WBC (Auto) Urine RBC (Auto) Ur Squamous Epith Cells Hyaline Casts Urine Osmolality 440 Stool Occult Blood Stool Leukocytes, Qual C. difficile Ag & Toxin 09/09/18 08:44 WBC RBC Hgb Hct MCV MCH MCHC RDW Plt Count MPV Neut % (Auto) Lymph % (Auto) [place] % (Auto) Eos % (Auto) Baso % (Auto) Neut # (Auto) Lymph # (Auto) [place] # (Auto) Eos # (Auto) Baso # (Auto) Neutrophils % (Manual) Lymphocytes % (Manual) Monocytes % (Manual) Eosinophils % (Manual) Platelet Estimate Hypochromasia (manual) Poikilocytosis (manual Anisocytosis (manual) Retic Count Sodium Potassium Chloride Carbon Dioxide Anion Gap BUN Creatinine Est GFR ( Amer) Est GFR (Non-Af Amer) Random Glucose Serum Osmolality Calcium Phosphorus Magnesium Iron TIBC % Saturation Ferritin Total Bilirubin AST ALT Alkaline Phosphatase Total Protein Albumin Globulin Albumin/Globulin Ratio Vitamin B12 Folate Procalcitonin Urine Color Urine Clarity Urine pH Ur Specific [place] Urine Protein Urine Glucose (UA) Urine Ketones Urine Blood Urine Nitrate Urine Bilirubin Urine Urobilinogen Ur Leukocyte Esterase Urine WBC (Auto) Urine RBC (Auto) Ur Squamous Epith Cells Hyaline Casts Urine Osmolality Stool Occult Blood Positive H Stool Leukocytes, Qual C. difficile Ag & Toxin Attending/Attestation - Attestation I have personally seen and examined this patient.: Yes I have fully participated in the care of the patient.: Yes I have reviewed all pertinent clinical information: Yes Notes (Text): 09/09/18 17:44 I have seen and examined patient. Agree with above documentation with the following additions. In brief, this is an 83 year old female with history of HTN, paroxysmal atrial fibrillation, diverticulosis who presents to hospital with complaint of progressive diarrhea and fatigue. She reports worsening diarrhea over the past 3 days though symptoms for the past one month. She had outpatient stool testing performed 10 days ago which was negative. She reports fatigue and having bowel movements up to 3-4 times daily with incontinence episodes. She denies nausea, vomiting, fever/chills, or rectal bleeding. No reported sick contacts, travel, or antibiotic use. She had attempted colon oscopy twice in 2017 which showed suboptimal bowel preparation on both instances. Today, she reports no bowel movements and is tolerating PO liquids without difficulty. Diarrhea - colitis of unclear etiology Iron deficiency anemia Paroxysmal atrial fibrillation HTN - Liquid diet as tolerated - Continue with antibiotic therapy - Await results of stool studies - Will consider inpatient colonoscopy if patient clinical symptoms have not improved over next 48 hours. Will continue to monitor patient clinical course. 09/09/18 17:49
[2018-09-09 08:48] LABS: % IRON SATURATION 11 (20-55); TOTAL IRON BINDING CAPACITY 180 ug/dL (250-450)
[2018-09-09 08:57] LABS: BASO % 0.5 % (0.0-2.0); EOS # 0.2 K/uL (0.0-0.7); EOS % 1.9 % (0.0-4.0); HEMOGLOBIN 8.2 g/dL (11.0-16.0); LYMPH # 0.6 K/uL (1.0-4.3); LYMPH % 6.9 % (20.0-40.0); MEAN CORPUSCULAR HEMOGLOBIN 31.4 pg (27.0-31.0); MEAN CORPUSCULAR HGB CONC 34.5 g/dL (33.0-37.0); MEAN PLATELET VOLUME 9.4 fL (7.2-11.7); MONO # 0.8 K/uL (0.0-0.8); MONO % 9.6 % (0.0-10.0); NEUT # 6.5 K/uL (1.8-7.0); NEUT % 81.1 % (50.0-75.0); RBC 2.62 Mil/uL (3.80-5.20); RED CELL DISTRIBUTION WIDTH 13.5 % (11.5-14.5); WHITE BLOOD COUNT 8.1 K/uL (4.8-10.8)
[2018-09-09 08:59] LABS: PLATELET COUNT 307 K/uL (130-400)
[2018-09-09] MEDS: Lactobacillus Acidophilus 500 MU Cap PO SCH ×2 (09:35→17:53)
[2018-09-09 09:37] LABS: EOSINOPHIL 1 % (0-4); LYMPHOCYTE 7 % (20-40); MONOCYTE 9 % (0-10); NEUTROPHIL 83 % (50-75); PLATELET ESTIMATE NORMAL (NORMAL); TOTAL CELLS COUNTED 100
[2018-09-09 09:45] LABS: ANISOCYTOSIS SLIGHT; HYPOCHROMIC MODERATE; POIKILOCYTOSIS SLIGHT
[2018-09-09] MEDS: metroNIDAZOLE IV 500 mg/100 ml 500 MG/100 ML BAG IVPB SCH ×2 (11:59→19:45)
--- NOTE | 2018-09-09 15:50 | CP.PCM.PN ---
<Cesar Cuellar - Last Filed: 09/09/18 16:02> Subjective - Date & Time of Evaluation Date of Evaluation: 09/09/18 Time of Evaluation: 16:16 - Subjective Subjective: PGY-[address] Madison Patient seen and examined at bedside. No acute events overnight. Patient advanced to clear liquid diet, tolerating. Patient no longer c/o abdominal pain at this time. She does still admit to watery stools. Denies nausea or vomiting. Denies chest pain, headache, shortness of breath, dizziness, numbness. Objective - Vital Signs/Intake and Output Vital Signs (last 24 hours): Temp Pulse Resp BP Pulse Ox 97.9 F 93 H 20 105/60 97 09/09/18 07:00 09/09/18 07:00 09/09/18 07:00 09/09/18 07:00 09/09/18 07:00 Intake and Output: 09/09/18 09/09/18 06:59 18:59 Intake Total 900 Output Total 601 Balance 299 - Medications Medications: Current Medications Calcium/Vitamin D (Oscal-D 250 Mg-125 Units Tab) 1 tab PO DAILY [facility] Ergocalciferol (Drisdol 50,000 Intl Units Cap) 1 cap PO QWK [facility] Famotidine (Pepcid) 20 mg IVP DAILY [facility] Last Admin: 09/09/18 09:34 Dose: 20 mg Folic Acid (Folic Acid) 1 mg PO DAILY [facility] Last Admin: 09/09/18 09:35 Dose: 1 mg Sodium Chloride (Sodium Chloride 0.9%) 1,000 mls @ 75 mls/hr IV .[id number] [facility] Last Admin: 09/09/18 09:42 Dose: 75 mls/hr Piperacillin Sod/Tazobactam Sod (Zosyn 2.25 Gm Iv Premix) 2.25 gm in 50 mls @ 100 mls/hr IVPB Q8H [facility]; Protocol Last Admin: 09/09/18 09:39 Dose: 100 mls/hr Metronidazole (Flagyl) 500 mg in 100 mls @ 100 mls/hr IVPB Q8H [facility]; Protocol Last Admin: 09/09/18 11:59 Dose: 100 mls/hr Lactobacillus Acidophilus (Lactobacillus) 1 cap PO BID [facility] Last Admin: 09/09/18 09:35 Dose: 1 cap - Labs Labs: 09/09/18 08:03 09/09/18 08:03 PT 15.4 SECONDS (9.7-12.2) H 09/08/18 17:30 INR 1.4 09/08/18 17:30 APTT 31.8 SECONDS (21-34) 09/08/18 17:30 - Constitutional Appears: Non-toxic, No Acute Distress - Head Exam Head Exam: ATRAUMATIC, NORMOCEPHALIC - Eye Exam Eye Exam: EOMI, Normal appearance - ENT Exam ENT Exam: Mucous Membranes Moist - Respiratory Exam Respiratory Exam: Clear to Ausculation Bilateral, NORMAL BREATHING PATTERN. absent: Rhonchi, Wheezes - Cardiovascular Exam Cardiovascular Exam: REGULAR RHYTHM, +S1, +S2 - GI/Abdominal Exam GI & Abdominal Exam: Soft, Normal Bowel Sounds. absent: Tenderness - Extremities Exam Extremities Exam: Normal Inspection. absent: Pedal Edema, Tenderness - Neurological Exam Neurological Exam: Alert, Awake, Oriented x3 - Psychiatric Exam Psychiatric exam: Normal Affect, Normal Mood - Skin Skin Exam: Dry, Intact Assessment and Plan - Assessment and Plan (Free Text) Assessment: This is an 83-year-old female with a past medical history of HTN, paroxysmal a fib, seronegative arthritis, diverticulosis, colitis, and hemorrhoids who presented initiall to the emergency department with her daughter for 2 months of diarrhea that has worsened over the past [address] a/p c/w acute colitis. Patient with active but stable GI bleed, GI following. Plan: Colitis, acute; GI Bleed Imaging -Abdominal CT 09/09: diffuse mild mural thickening of the left colon with luminal narrowing probably representing colitis. -Hx diverticulitis, colitis -Leukocytosis at 13, bandemia of 17 on admission. Afebrile, no tachycardia. Initial lactate 1.1 -Lactobacillus BID -F/u lactoferrin, , stool culture, stool leukocytes -C diff negative -Procalcitonin 0.16 -Stool leukocytes positive Micro -ova and parasite x3 - negative -Stool cx- f/u -Blood cultures negative x24 hours -GI, Dr. Cardona, consulted --Diet advanced to [facility]D --Per GI, GI bleed is stable (patient had recent outpatient colonoscopy) Abx -Renally dosed Zosyn 2.25 g IVPB q8h (09/08) Meds -Protonix 20mg IV BID SUMA, acute; Oliguria, acute; Hypocalcemia -Likely secondary to hypotension/prerenal -BUN/Cr is 94/1.7 on admission -Bladder scan qshift with order to straight cath if retaining urine (note patient has been retaining urine) -BUN/Cr improving Meds -NS IVF @ 75 cc/hr -Calcium Carbonate/Vit D once daily Anemia, acute on chronic -Hgb/Hct is 9.1/26.5 on admission (baseline is 9-10) -Hold home ferrous sulfate in light of acute infection -Continue home Folate 1 mg PO daily -FOBT +. F/u repeat. GI following Meds -Protonix 20mg IV BID Hypovolemia hyponatremia -128 on admission -NS IVF 1L Bolus x2 in the ED, continue NS IVF at 75 mL/hr -Fall precautions -Hold home valsartan Dehydration, secondary to diarrhea due to colitis -Pt hypotensive 90s SBP 50s DBP in the ED -100 SBP, stable, fluids at 75/hr -NS IVF as above -Hold home valsartan, amlodipine, metoprolol -Continue to monitor Paroxysmal Afib, chronic -EKG shows NSR -Hold home Metoprolol in light of hypotension -CHADSVASC2 score is 2; HASBLED is 1 -No ASA as per family because pt is had bleeding hemorrhoids approximately 3 months ago -No eliquis due to insurance issues Acute stress disorder, acute -Pt's in April. Daughter reports pt has had decreased PO intake and increased sleep since his passing. -Continue to monitor -May consider Psychiatry consult PPx: -GI: Protonix 20 mg IV BID -VTE: chemical ppx contraindicated due to anemia, SCDs -Lactobacillus Case discussed with Dr. Los Cuellar, PGY-1 <Zina Madison V - Last Filed: 09/09/18 22:18> Objective - Vital Signs/Intake and Output Vital Signs (last 24 hours): Temp Pulse Resp BP Pulse Ox 98.3 F 85 20 113/66 95 09/09/18 16:09 09/09/18 16:09 09/09/18 16:09 09/09/18 16:09 09/09/18 16:09 Intake and Output: 05/21/19 05/22/19 18:59 06:59 Intake Total 965 Output Total 900 Balance 65 - Medications Medications: Current Medications Calcium/Vitamin D (Oscal-D 250 Mg-125 Units Tab) 1 tab PO DAILY [facility] Famotidine (Pepcid) 20 mg IVP DAILY [facility] Last Admin: 09/09/18 09:34 Dose: 20 mg Folic Acid (Folic Acid) 1 mg PO DAILY [facility] Last Admin: 09/09/18 09:35 Dose: 1 mg Sodium Chloride (Sodium Chloride 0.9%) 1,000 mls @ 75 mls/hr IV .[id number] [facility] Last Admin: 09/09/18 21:14 Dose: Not Given Piperacillin Sod/Tazobactam Sod (Zosyn 2.25 Gm Iv Premix) 2.25 gm in 50 mls @ 100 mls/hr IVPB Q8H [facility]; Protocol Last Admin: 09/09/18 17:55 Dose: 100 mls/hr Metronidazole (Flagyl) 500 mg in 100 mls @ 100 mls/hr IVPB Q8H [facility]; Protocol Last Admin: 09/09/18 19:45 Dose: 100 mls/hr Lactobacillus Acidophilus (Lactobacillus) 1 cap PO BID [facility] Last Admin: 09/09/18 17:53 Dose: 1 cap - Labs Labs: 09/09/18 08:03 09/09/18 08:03 PT 15.4 SECONDS (9.7-12.2) H 09/08/18 17:30 INR 1.4 09/08/18 17:30 APTT 31.8 SECONDS (21-34) 09/08/18 17:30 Attending/Attestation - Attestation I have personally seen and examined this patient.: Yes I have fully participated in the care of the patient.: Yes I have reviewed all pertinent clinical information, including history, physical exam and plan: Yes Notes (Text): Patient seen, examined case discussed with certified medical coder. Patient seen this morning with her daughter present at bedside. Patient in better spirits. Patient reporting no longer has the runs in terms of her diarrhea. I did speak with her nurse at bedside patient does have watery d iarrhea but appears to be more formed. Patient is noted to be looking much better how I saw originally in the emergency room. While on antibiotic white count has normalized she has not had a fever overnight bands have cleared we are awaiting stool samples. She is noted for possible occult blood and positive leukocytes in the stool. C. difficile is negative. Creatinine is improving while on IV fluids as supplementation. Likely patient is dehydrated from the diarrhea. There is a plan for a future outpatient colonoscopy in 6 to 8 weeks. I did speak with the GI and it is unclear what the etiology is to the colitis but likely she will need a repeat of this study. We are hoping if patient continues to improve and we will be able to discharge her tomorrow. Notably blood cultures are negative. She is on day 2 of Zosyn. Update assessment and plan noted below Assessment/plan 1. Colitis, acute Prior history Hx diverticulitis, colitis On admission leukocytosis at 13, bandemia of 17 on admission. Afebrile, no tachycardia. Lactate is 1.[address] shows diffuse mild mural thickening of the left colon with luminal narrowing probably representing colitis. Received Flagyl 500 mg IVPB x1, Zosyn 2.25 g IVPB x1 in the ED. Renally dosed Zosyn 2.25 g IVPB q8h (09/08) Lactobacillus BID GI, Dr. Cardona, consulted. Patient's GI GI disposition clerk F/u lactoferrin, ova and parasite x3, FOBT, stool culture, c. diff, procalcitonin, stool leukocytes, Blood culture x2 She does have a prior history of rectal bleeding likely hemorrhoidal when she is Preparation H 2. SUMA, acute Oliguria, acute Likely secondary to dehydration secondary to diarrhea BUN/Cr is 94/1.7 on admission * Improving to 1.4 He has received 2 L boluses we will continue maintenance fluids NS IVF as below 3. Hypovolemia hyponatremia Patient appears clinically dehydrated 128 on admission * Improving while on IV fluids NS IVF 1L Bolus x2 in the ED, continue NS IVF at 75 mL/hr We will continue IV maintenance fluids Fall precautions 4. Dehydration, secondary to diarrhea due to colitis Pt hypotensive 90s SBP 50s DBP in the ED Improving while on IV fluids 5. Paroxysmal Afib, chronic Dr. Coppola as an outpatient when she was diagnosed with paroxysmal atrial fibrillation based on [facility] E[facility] shows NSR Hold home Metoprolol in light of hypotension. May need to restart low-dose metoprolol pending blood pressure CHADSVASC2 score is 2; HASBLED is 1 No ASA as per family because pt is had bleeding hemorrhoids approximately 3 months ago No eliquis due to insurance issues To follow-up with GI to see when patient will be able to use at least aspirin: Hemoglobin is slowly downtrending. Ferritin is within normal she will likely need to continue iron supplementation unclear if patient can resume at least an aspirin or not pain patient GI is working towards her outpatient colonoscopy in the future 6. Anemia, chronic Hgb/Hct is 9.1/26.5 on admission (baseline is 9-10) * Downtrending slightly will need to continue monitoring Hold home ferrous sulfate in light of acute infection Continue home Folate 1 mg PO daily Ferritin within normal Reticulocyte index is low Occult blood is positive 7. Bereavement; acute stress disorder, acute Patient has a very supportive sister in terms of her children as well as her oriental orthodox Pt's in April. Daughter reports pt has had decreased PO intake and increased sleep since his passing. Continue to monitor Pastoral care consult Will hold off for psychiatry at this time 8. PPx: GI: Pepcid 20 mg IV twice daily VTE: chemical ppx contraindicated due to anemia, SCDs Lactobacillus 1 tab p.o. twice daily Disposition: Patient to remain in hospital to benefit from IV fluids for dehydration secondary to diarrhea. Patient to continue to benefit from IV antibiotic however however unclear etiology to colitis. We will follow-up on to see if patient is appropriate for possible discharge with p.o. antibiotic and follow-up with GI for repeat colonoscopy for 6 to 8 weeks
[2018-09-10] MEDS: Piperacill/Tazo 2.25gm in Dex 2.25 GM/50 ML BAG IVPB SCH ×3 (02:12→17:15)
[2018-09-10] MEDS: Sodium Chloride 0.9% 1,000 ML IV SCH ×2 (02:15→10:51)
[2018-09-10] MEDS: metroNIDAZOLE IV 500 mg/100 ml 500 MG/100 ML BAG IVPB SCH ×3 (03:05→19:30)
[2018-09-10 07:09] LABS: ALBUMIN 2.4 g/dL (3.5-5.0); ALT/SGPT 19 U/L (9-52); AST/SGOT 16 U/L (14-36); BLOOD UREA NITROGEN 19 mg/dL (7-17); CALCIUM 6.9 mg/dl (8.6-10.4); GFR NON-AFRICAN AMERICAN > 60
[2018-09-10 07:45] LABS: BASO % 0.2 % (0.0-2.0); EOS # 0.3 K/uL (0.0-0.7); EOS % 5.2 % (0.0-4.0); LYMPH # 0.7 K/uL (1.0-4.3); LYMPH % 9.9 % (20.0-40.0); MEAN CELL VOLUME 90.6 fL (81.0-99.0); MEAN CORPUSCULAR HEMOGLOBIN 30.2 pg (27.0-31.0); MEAN CORPUSCULAR HGB CONC 33.4 g/dL (33.0-37.0); MEAN PLATELET VOLUME 9.2 fL (7.2-11.7); MONO # 0.6 K/uL (0.0-0.8); MONO % 9.6 % (0.0-10.0); NEUT % 75.1 % (50.0-75.0); PLATELET COUNT 295 K/uL (130-400); RBC 2.64 Mil/uL (3.80-5.20); RED CELL DISTRIBUTION WIDTH 13.7 % (11.5-14.5); WHITE BLOOD COUNT 6.6 K/uL (4.8-10.8)
--- NOTE | 2018-09-10 08:21 | CP.PCM.PN ---
<Robert,Hayley - Last Filed: 09/10/18 08:19> Subjective - Date & Time of Evaluation Date of Evaluation: 09/10/18 Time of Evaluation: 06:50 - Subjective Subjective: GI Fellow PGY5 Progress Note Pt seen and evaluated at bedside, pt reports no BM overnight, watery BM decreased frequency. No appetite. ROS: A 12pt ROS was negative except as above. Objective - Vital Signs/Intake and Output Vital Signs (last 24 hours): Temp Pulse Resp BP Pulse Ox 97.5 F L 70 20 132/77 97 09/10/18 07:35 09/10/18 07:35 09/10/18 07:35 09/10/18 07:35 09/10/18 07:35 Intake and Output: 09/10/18 09/10/18 06:59 18:59 Intake Total 1810 Output Total 305 Balance 1505 - Medications Medications: Current Medications Calcium/Vitamin D (Oscal-D 250 Mg-125 Units Tab) 1 tab PO DAILY [facility] Famotidine (Pepcid) 20 mg IVP DAILY [facility] Last Admin: 09/09/18 09:34 Dose: 20 mg Folic Acid (Folic Acid) 1 mg PO DAILY [facility] Last Admin: 09/09/18 09:35 Dose: 1 mg Sodium Chloride (Sodium Chloride 0.9%) 1,000 mls @ 75 mls/hr IV .[id number] [facility] Last Admin: 09/10/18 02:15 Dose: 75 mls/hr Piperacillin Sod/Tazobactam Sod (Zosyn 2.25 Gm Iv Premix) 2.25 gm in 50 mls @ 100 mls/hr IVPB Q8H [facility]; Protocol Last Admin: 09/10/18 02:12 Dose: 100 mls/hr Metronidazole (Flagyl) 500 mg in 100 mls @ 100 mls/hr IVPB Q8H [facility]; Protocol Last Admin: 09/10/18 03:05 Dose: 100 mls/hr Lactobacillus Acidophilus (Lactobacillus) 1 cap PO BID [facility] Last Admin: 09/09/18 17:53 Dose: 1 cap - Labs Labs: 09/10/18 06:40 09/10/18 06:40 PT 15.4 SECONDS (9.7-12.2) H 09/08/18 17:30 INR 1.4 09/08/18 17:30 APTT 31.8 SECONDS (21-34) 09/08/18 17:30 - Constitutional Appears: Non-toxic, No Acute Distress - Head Exam Head Exam: ATRAUMATIC, NORMAL INSPECTION, NORMOCEPHALIC - Eye Exam Eye Exam: EOMI, Normal appearance, PERRL Pupil Exam: PERRL - ENT Exam ENT Exam: Mucous Membranes Moist, Normal Exam - Neck Exam Neck Exam: Full ROM, Normal Inspection - Respiratory Exam Respiratory Exam: Clear to Ausculation Bilateral, NORMAL BREATHING PATTERN - Cardiovascular Exam Cardiovascular Exam: REGULAR RHYTHM, +S1, +S2 - GI/Abdominal Exam GI & Abdominal Exam: Soft, Normal Bowel Sounds. absent: Tenderness - Extremities Exam Extremities Exam: Full ROM, Normal Inspection - Back Exam Back Exam: NORMAL INSPECTION - Neurological Exam Neurological Exam: Alert, Awake, Oriented x3 - Psychiatric Exam Psychiatric exam: Normal Affect, Normal Mood - Skin Skin Exam: Dry, Intact, Normal Color, Warm Assessment and Plan - Assessment and Plan (Free Text) Assessment: 1. Abdominal pain, diarrhea 2. Colitis 2. SUMA 3. Chronic Anemia Plan: On admission leukocytosis at 13, bandemia of 17 on admission, improving WBC Abdominal CT shows diffuse mild mural thickening of the left colon with luminal narrowing probably representing colitis. Pt on Zosyn and started IV flagyl Stool studies in the office were negative 2 weeks ago and so far c diff negative She does have a prior history of rectal bleeding likely hemorrhoids IVF for SUMA, monitor Cr, Likely secondary to dehydration secondary to diarrhea Anemia, with Hgb stable, no active GI bleeding Advance diet as tolerated Will need outpt colonoscopy in 6-8 wks after colitis, pt currently refusing inpt colonoscopy Will continue to follow pt closely <Aidan Cardona - Last Filed: 09/10/18 15:11> Objective - Vital Signs/Intake and Output Vital Signs (last 24 hours): Temp Pulse Resp BP Pulse Ox 97.5 F L 70 20 132/77 97 09/10/18 07:35 09/10/18 07:35 09/10/18 07:35 09/10/18 07:35 09/10/18 07:35 Intake and Output: 09/10/18 09/10/18 06:59 18:59 Intake Total 1810 550 Output Total 305 Balance 1505 550 - Medications Medications: Current Medications Calcium/Vitamin D (Oscal-D 250 Mg-125 Units Tab) 1 tab PO DAILY [facility] Last Admin: 09/10/18 10:38 Dose: 1 tab Famotidine (Pepcid) 20 mg IVP DAILY [facility] Last Admin: 09/10/18 10:39 Dose: 20 mg Folic Acid (Folic Acid) 1 mg PO DAILY [facility] Last Admin: 09/10/18 10:39 Dose: 1 mg Sodium Chloride (Sodium Chloride 0.9%) 1,000 mls @ 75 mls/hr IV .[id number] [facility] Last Admin: 09/10/18 10:51 Dose: Not Given Piperacillin Sod/Tazobactam Sod (Zosyn 2.25 Gm Iv Premix) 2.25 gm in 50 mls @ 100 mls/hr IVPB Q8H [facility]; Protocol Last Admin: 09/10/18 11:24 Dose: 100 mls/hr Metronidazole (Flagyl) 500 mg in 100 mls @ 100 mls/hr IVPB Q8H [facility]; Protocol Last Admin: 09/10/18 10:40 Dose: 100 mls/hr Potassium Phosphate 15 mmole/ (Sodium Chloride) 255 mls @ 42.5 mls/hr IVPB ONCE ONE Stop: 09/10/18 15:59 Last Admin: 09/10/18 10:50 Dose: 42.5 mls/hr Lactobacillus Acidophilus (Lactobacillus) 1 cap PO BID [facility] Last Admin: 09/10/18 10:34 Dose: 1 cap - Labs Labs: 09/10/18 06:40 09/10/18 06:40 PT 15.4 SECONDS (9.7-12.2) H 09/08/18 17:30 INR 1.4 09/08/18 17:30 APTT 31.8 SECONDS (21-34) 09/08/18 17:30 Attending/Attestation - Attestation I have personally seen and examined this patient.: Yes I have fully participated in the care of the patient.: Yes I have reviewed all pertinent clinical information, including history, physical exam and plan: Yes Notes (Text): 09/10/18 15:08 I have seen and examined patient with GI fellow. No acute events overnight, her stool frequency has decreased and she is tolerating PO diet without difficulty. She denies abdominal pain, nausea, vomiting, fever/chills. Review of vitals from today are normal. Diarrhea, colitis Anemia Acute renal insufficiency - resolved - Advance diet as tolerated - Continue with antibiotic therapy - Awaiting results of stool studies - Patient would benefit from outpatient colonoscopy 6-8 weeks following resolution of acute symptoms
[2018-09-10] MEDS ORDERED: Potassium Chloride 20 mEq ER Tab PO SCH (09:00)
[2018-09-10 09:25] LABS: BANDS 4 % (0-2); EOSINOPHIL 6 % (0-4); MONOCYTE 11 % (0-10); TOTAL CELLS COUNTED 100
[2018-09-10 09:26] LABS: ANISOCYTOSIS SLIGHT; HYPOCHROMIC SLIGHT; LYMPHOCYTE 11 % (20-40); NEUTROPHIL 68 % (50-75); PLATELET ESTIMATE NORMAL (NORMAL); POIKILOCYTOSIS SLIGHT
[2018-09-10 09:28] LABS: TARGET CELLS SLIGHT
[2018-09-10] MEDS ORDERED: Potassium Phosphate 15 MMOLE in Sodium Chloride 0.9% 250 ML IVPB ONE (10:00)
[2018-09-10] MEDS ORDERED: Calcium-Vit D 250 mg-125 Units Tab UD PO SCH (10:00)
[2018-09-10] MEDS: Lactobacillus Acidophilus 500 MU Cap PO SCH ×2 (10:34→17:13)
[2018-09-10] MEDS: Calcium-Vit D 250 mg-125 Units Tab UD PO SCH (10:38)
--- NOTE | 2018-09-10 13:29 | CP.PCM.DIS ---
<Cesar Cuellar - Last Filed: 09/11/18 13:04> Provider - Provider Date of Admission: 09/08/18 16:28 Attending physician: Zina Madison DO Consults: 09/08/18 16:34 Gastroenterology Consult Routine Comment: Consulting Provider: Aidan Cardona Consulting Physician: Aidan Cardona Reason for Consult: colitis, known to service Time Spent in preparation of Discharge (in minutes): 45 Hospital Course - Lab Results Lab Results: Micro Results 09/08/18 16:14 Urine,Clean Catch Urine Culture - Final <10,000 CFU/ML. MULTIPLE SPECIES. PROBABLE CONTAMINATION. 09/09/18 11:00 Stool Ova and Parasite Concentrate Exam - Final 09/08/18 13:50 Blood Blood Culture - Preliminary NO GROWTH AFTER 24 HOURS 09/08/18 14:00 Blood Blood Culture - Preliminary NO GROWTH AFTER 24 HOURS Most Recent Lab Values WBC 6.6 K/uL (4.8-10.8) 09/10/18 06:40 RBC 2.64 Mil/uL (3.80-5.20) L 09/10/18 06:40 Hgb 8.0 g/dL (11.0-16.0) L 09/10/18 06:40 Hct 23.9 % (34.0-47.0) L 09/10/18 06:40 MCV 90.6 fL (81.0-99.0) 09/10/18 06:40 MCH 30.2 pg (27.0-31.0) 09/10/18 06:40 MCHC 33.4 g/dL (33.0-37.0) 09/10/18 06:40 RDW 13.7 % (11.5-14.5) 09/10/18 06:40 Plt Count 295 K/uL (130-400) 09/10/18 06:40 MPV 9.2 fL (7.2-11.7) 09/10/18 06:40 Neut % (Auto) 75.1 % (50.0-75.0) H 09/10/18 06:40 Lymph % (Auto) 9.9 % (20.0-40.0) L 09/10/18 06:40 Morton % (Auto) 9.6 % (0.0-10.0) 09/10/18 06:40 Eos % (Auto) 5.2 % (0.0-4.0) H 09/10/18 06:40 Baso % (Auto) 0.2 % (0.0-2.0) 09/10/18 06:40 Neut # (Auto) 5.0 K/uL (1.8-7.0) 09/10/18 06:40 Lymph # (Auto) 0.7 K/uL (1.0-4.3) L 09/10/18 06:40 Morton # (Auto) 0.6 K/uL (0.0-0.8) 09/10/18 06:40 Eos # (Auto) 0.3 K/uL (0.0-0.7) 09/10/18 06:40 Baso # (Auto) 0.0 K/uL (0.0-0.2) 09/10/18 06:40 Neutrophils % (Manual) 68 % (50-75) 09/10/18 06:40 Band Neutrophils % 4 % (0-2) H 09/10/18 06:40 Lymphocytes % (Manual) 11 % (20-40) L 09/10/18 06:40 Monocytes % (Manual) 11 % (0-10) H 09/10/18 06:40 Eosinophils % (Manual) 6 % (0-4) H 09/10/18 06:40 Toxic Granulation Present 09/08/18 12:49 Dohle Bodies Present 09/08/18 12:49 Platelet Estimate Normal (NORMAL) 09/10/18 06:40 Large Platelets Present 09/08/18 12:49 RBC Morphology Normal 09/08/18 12:49 Hypochromasia (manual) Slight 09/10/18 06:40 Poikilocytosis (manual Slight 09/10/18 06:40 Anisocytosis (manual) Slight 09/10/18 06:40 Target Cells Slight 09/10/18 06:40 Retic Count 1.6 % (0.5-1.5) H 09/09/18 08:17 PT 15.4 SECONDS (9.7-12.2) H 09/08/18 17:30 INR 1.4 09/08/18 17:30 APTT 31.8 SECONDS (21-34) 09/08/18 17:30 pO2 30 mm/Hg (30-55) 09/08/18 16:38 VBG pH 7.35 (7.32-7.43) 09/08/18 16:38 VBG pCO2 41 mmHg (40-60) 09/08/18 16:38 VBG HCO3 21.5 mmol/L 09/08/18 16:38 VBG Total CO2 23.9 mmol/L (22-28) 09/08/18 16:38 VBG O2 Sat (Calc) 49.4 % (40-65) 09/08/18 16:38 VBG Base Excess -2.9 mmol/L (0.0-2.0) L 09/08/18 16:38 VBG Potassium 6.2 mmol/L (3.6-5.2) H* 09/08/18 16:38 Sodium 130.0 mmol/l (132-148) L 09/08/18 16:38 Chloride 105.0 mmol/L (98-107) 09/08/18 16:38 Glucose 85 mg/dl (65-105) 09/08/18 16:38 Lactate 1.1 mmol/L (0.7-2.1) 09/08/18 16:38 Crit Value Called To Rosy srivastava rn 09/08/18 16:38 Crit Value Called By Aiden 09/08/18 16:38 Crit Value Read Back Y 09/08/18 16:38 Blood Gas Notified Time 1642 09/08/18 16:38 Sodium 131 mmol/L (132-148) L 09/10/18 06:40 Potassium 3.0 mmol/L (3.6-5.2) L 09/10/18 06:40 Chloride 106 mmol/L (98-107) 09/10/18 06:40 Carbon Dioxide 22 mmol/L (22-30) 09/10/18 06:40 Anion Gap 7 (10-20) L 09/10/18 06:40 BUN 19 mg/dL (7-17) H 09/10/18 06:40 Creatinine 0.9 mg/dL (0.7-1.2) 09/10/18 06:40 Est GFR ( Amer) > 60 09/10/18 06:40 Est GFR (Non-Af Amer) > 60 09/10/18 06:40 Random Glucose 92 mg/dL (65-105) D 09/10/18 06:40 Serum Osmolality 282 mosm/kg (272-300) 09/09/18 08:17 Calcium 6.9 mg/dl (8.6-10.4) L 09/10/18 06:40 Phosphorus 1.2 mg/dL (2.5-4.5) L 09/10/18 06:40 Magnesium 2.0 mg/dL (1.6-2.3) 09/10/18 06:40 Iron 20 ug/dL (37-170) L 09/09/18 08:17 TIBC 180 ug/dL (250-450) L 09/09/18 08:17 % Saturation 11 (20-55) L 09/09/18 08:17 Ferritin 104.0 ng/mL 09/08/18 23:15 Total Bilirubin 0.2 mg/dL (0.2-1.3) 09/10/18 06:40 AST 16 U/L (14-36) 09/10/18 06:40 ALT 19 U/L (9-52) 09/10/18 06:40 Alkaline Phosphatase 55 U/L (38-126) 09/10/18 06:40 Total Protein 4.9 g/dL (6.3-8.3) L 09/10/18 06:40 Albumin 2.4 g/dL (3.5-5.0) L 09/10/18 06:40 Globulin 2.5 gm/dL (2.2-3.9) 09/10/18 06:40 Albumin/Globulin Ratio 1.0 (1.0-2.1) 09/10/18 06:40 Vitamin B12 > 1000 pg/mL (239-931) H 09/08/18 23:15 25-OH Vitamin D Total 47.4 NG/ML (30.0-100.0) 09/10/18 07:28 Folate > 20.0 ng/mL 09/08/18 23:15 Procalcitonin 0.16 NG/ML (0.19-0.49) L 09/08/18 17:30 Venous Blood Potassium 6.2 mmol/L (3.6-5.2) H* 09/08/18 16:38 Urine Color Yellow (YELLOW) 09/08/18 22:06 Urine Clarity Hazy (Clear) 09/08/18 22:06 Urine pH 5.0 (5.0-8.0) 09/08/18 22:06 Ur Specific [place] 1.017 (1.003-1.030) 09/08/18 22:06 Urine Protein Negative mg/dL (NEGATIVE) 09/08/18 22:06 Urine Glucose (UA) Normal mg/dL (Normal) 09/08/18 22:06 Urine Ketones Trace mg/dL (NEGATIVE) 09/08/18 22:06 Urine Blood Negative (NEGATIVE) 09/08/18 22:06 Urine Nitrate Negative (NEGATIVE) 09/08/18 22:06 Urine Bilirubin Negative (NEGATIVE) 09/08/18 22:06 Urine Urobilinogen Normal mg/dL (0.2-1.0) 09/08/18 22:06 Ur Leukocyte Esterase 1+ Pamela/uL (Negative) H 09/08/18 22:06 Urine WBC (Auto) 19 /hpf (0-5) H 09/08/18 22:06 Urine RBC (Auto) 3 /hpf (0-3) 09/08/18 22:06 Ur Squamous Epith Cells 7 /hpf (0-5) H 09/08/18 22:06 Hyaline Casts 6-10 /lpf (0-2) H 09/08/18 22:06 Urine Osmolality 440 mosm/kg (300-1000) 09/09/18 08:32 Stool Occult Blood Positive (NEGATIVE) H 09/09/18 08:44 Stool Leukocytes, Qual Positive (NEGATIVE) H 09/08/18 16:17 C. difficile Ag & Toxin Negative (NEGATIVE) 09/09/18 04:59 - Hospital Course Hospital Course: HPI Patient is an 83-year-old female with a past medical history of HTN, paroxysmal a fib, seronegative arthritis, diverticulosis, colitis, and hemorrhoids who presents to the emergency department with her daughter for 2 months of diarrhea that has worsened over the past 3 days. Recently, pt reports she has not been able to make it to the bathroom and loses control of her bowels. Patient denies any sick contacts, recent travel or antibiotics use. Patient had a colonscopy 2 years ago which showed diverticulosis and hemorrhoids but was unable to assess further due to poor prep. Patient endorses weight loss over the past few weeks, asspciated with weakness, diarrhea, crampy lower abdominal pain. She endorses decreased urine output for one day. The patient denies fever, chills, headache, lightheadedness, dizziness, night sweats, diaphoresis, syncope, falls, chest pain, palpitations, SOB, cough, dyspnea, nausea, vomiting, constipation, melena, hematochezia, dysuria, hematuria, burning on urination, numbness, and tingling. Pt saw blood dripping after bowel movement 2 months ago, but has resolved since she was given preparation H by her GI Dr. Cardona. The patient currently denies any blood in the stool or black, tarry stools. The patients diarrhea improves with Imodium. The patient did not take her BP medications this morning. Patient had issues with insurance regarding Eliquis, and was going to start Aspirin but has not started due to bleeding. Hospital Course Patient was hospitalized with colitis upon presenting with uncontrollable watery diarrhea and lower abdominal cramping. GI was consulted, Dr. Cardona. Patient was started on IV antibiotics, Zosyn and Flagyl on 09/08. Patient had recent colonoscopy, which was obscured do to poor prep, but did show bleeding internal hemorrhoids. Stool studies revealed positive heme occult and positive stool leukocytes. Stool C diff and O and P both negative. Thus patient was treated for acute colitis, and GI bleed which was determined to be stable as evaluated per GI. Hemoglobin did decrease but did not show a significant acute drop at any point, and patient showed no signs of overt bleeding. Per GI team, patient was continued on IV antibiotics and her diet was advanced as tolerated. Prior to discharge, patient was tolerating regular diet and her symptoms had improved. Patient was discharged with course of PO antibiotics and plans to follow up with primary as well as GI who recommended outpatient colonoscopy within 6-8 weeks of discharge. Imaging -Abdominal CT 09/09: diffuse mild mural thickening of the left colon with luminal narrowing probably representing colitis. Discharge Exam - Head Exam Head Exam: ATRAUMATIC, NORMAL INSPECTION, NORMOCEPHALIC - Eye Exam Eye Exam: EOMI, Normal appearance - Respiratory Exam Respiratory Exam: Clear to PA & Lateral. absent: Rhonchi, Wheezes - Cardiovascular Exam Cardiovascular Exam: REGULAR RHYTHM, +S1, +S2 - GI/Abdominal Exam GI & Abdominal Exam: Normal Bowel Sounds, Soft. absent: Tenderness - Extremities Exam Extremities exam: normal inspection - Neurological Exam Neurological exam: Alert, CN II-XII Intact, Oriented x3 - Psychiatric Exam Psychiatric exam: Normal Affect, Normal Mood - Skin Skin Exam: Dry, Intact Discharge Plan - Discharge Medications Prescriptions: Aspirin 81 mg PO DAILY #30 tab.chew Ciprofloxacin [Cipro] 500 mg PO Q12 #20 tab Famotidine [Pepcid] 20 mg PO BID #30 tab Lactobacillus Acidophilus [Lactobacillus] 1 cap PO BID #20 cap Metronidazole [Flagyl] 250 mg PO Q8 #30 tablet Metronidazole [Flagyl] 500 mg PO Q8 #30 tablet - Follow Up Plan Disposition: REHAB FACILITY/REHAB UNIT Instructions: Dehydration, Adult (DC), Amoxicillin and Clavulanate, Lactobacillus, Colitis (DC) Additional Instructions: Patient is cleared for discharge per primary team Please continue taking your home medications as prescribed You have been prescribed some additional medications, including an antibiotic (Augmentin) and a pro-biotic (Lactobacillus) to take along with the antibiotic to prevent GI distress. Please discontinue Eliquis until follow up with your primary doctor. Please also stop taking blood pressure medications (Amlodipine, Valsartan, Metoprolol) You should take the following NEW medications which have been prescribed -Cipro 500 mg one tab by by mouth two times per day at 8am and 8pm for 10 days -Flagyl 500 mg one tab by by mouth three times per day at 8am 2pm, and 8pm for 10 days (Do not drink alcohol while on this medication) -Lactobacillus one pill by mouth two times per day at 8am and 8pm for 10 days -Aspirin 81 mg one pill by mouth daily at 8am Please make sure to follow up with your GI doctor, Dr. Cardona, in one month. You will need to schedule a colonoscopy with Dr. Cardona in 6-8 weeks. Please also make sure to follow up with your primary care doctor. Please return to ER if symptoms recur or worsen. Referrals: Aidan Cardona MD [Staff Provider] - <Zina Madison V - Last Filed: 09/11/18 18:44> Provider - Provider Date of Admission: 09/08/18 16:28 Attending physician: Zina Madison DO Consults: 09/11/18 12:17 Case Management Referral Routine Comment: Physician Instructions: Reason For Exam: Home PT, visiting nursing Reason for Referral: Discharge Planning Hospital Course - Lab Results Lab Results: Micro Results 09/08/18 13:50 Blood Blood Culture - Preliminary NO GROWTH AFTER 3 DAYS 09/08/18 14:00 Blood Blood Culture - Preliminary NO GROWTH AFTER 3 DAYS 09/09/18 11:00 Stool Stool Culture - Final NO SALMONELLA, SHIGELLA OR CAMPYLOBACTER ISOLATED. 09/09/18 22:30 Stool Ova and Parasite Concentrate Exam - Final 09/08/18 16:14 Urine,Clean Catch Urine Culture - Final <10,000 CFU/ML. MULTIPLE SPECIES. PROBABLE CONTAMINATION. 09/09/18 11:00 Stool Ova and Parasite Concentrate Exam - Final Most Recent Lab Values WBC 9.3 K/uL (4.8-10.8) 09/11/18 07:49 RBC 2.94 Mil/uL (3.80-5.20) L 09/11/18 07:49 Hgb 9.0 g/dL (11.0-16.0) L 09/11/18 07:49 Hct 26.3 % (34.0-47.0) L 09/11/18 07:49 MCV 89.3 fL (81.0-99.0) 09/11/18 07:49 MCH 30.5 pg (27.0-31.0) 09/11/18 07:49 MCHC 34.1 g/dL (33.0-37.0) 09/11/18 07:49 RDW 13.7 % (11.5-14.5) 09/11/18 07:49 Plt Count 376 K/uL (130-400) 09/11/18 07:49 MPV 9.1 fL (7.2-11.7) 09/11/18 07:49 Neut % (Auto) 83.0 % (50.0-75.0) H 09/11/18 07:49 Lymph % (Auto) 7.4 % (20.0-40.0) L 09/11/18 07:49 Morton % (Auto) 7.2 % (0.0-10.0) 09/11/18 07:49 Eos % (Auto) 2.1 % (0.0-4.0) 09/11/18 07:49 Baso % (Auto) 0.3 % (0.0-2.0) 09/11/18 07:49 Neut # (Auto) 7.7 K/uL (1.8-7.0) H 09/11/18 07:49 Lymph # (Auto) 0.7 K/uL (1.0-4.3) L 09/11/18 07:49 Morton # (Auto) 0.7 K/uL (0.0-0.8) 09/11/18 07:49 Eos # (Auto) 0.2 K/uL (0.0-0.7) 09/11/18 07:49 Baso # (Auto) 0.0 K/uL (0.0-0.2) 09/11/18 07:49 Neutrophils % (Manual) 82 % (50-75) H 09/11/18 07:49 Band Neutrophils % 7 % (0-2) H 09/11/18 07:49 Lymphocytes % (Manual) 5 % (20-40) L 09/11/18 07:49 Monocytes % (Manual) 4 % (0-10) 09/11/18 07:49 Eosinophils % (Manual) 1 % (0-4) 09/11/18 07:49 Myelocytes % 1 % (0-0) H 09/11/18 07:49 Toxic Granulation Present 09/08/18 12:49 Dohle Bodies Present 09/08/18 12:49 Platelet Estimate Normal (NORMAL) 09/11/18 07:49 Large Platelets Present 09/08/18 12:49 RBC Morphology Normal 09/08/18 12:49 Hypochromasia (manual) Slight 09/11/18 07:49 Poikilocytosis (manual Slight 09/11/18 07:49 Anisocytosis (manual) Slight 09/11/18 07:49 Target Cells Slight 09/11/18 07:49 Retic Count 1.6 % (0.5-1.5) H 09/09/18 08:17 PT 15.4 SECONDS (9.7-12.2) H 09/08/18 17:30 INR 1.4 09/08/18 17:30 APTT 31.8 SECONDS (21-34) 09/08/18 17:30 pO2 30 mm/Hg (30-55) 09/08/18 16:38 VBG pH 7.35 (7.32-7.43) 09/08/18 16:38 VBG pCO2 41 mmHg (40-60) 09/08/18 16:38 VBG HCO3 21.5 mmol/L 09/08/18 16:38 VBG Total CO2 23.9 mmol/L (22-28) 09/08/18 16:38 VBG O2 Sat (Calc) 49.4 % (40-65) 09/08/18 16:38 VBG Base Excess -2.9 mmol/L (0.0-2.0) L 09/08/18 16:38 VBG Potassium 6.2 mmol/L (3.6-5.2) H* 09/08/18 16:38 Sodium 130.0 mmol/l (132-148) L 09/08/18 16:38 Chloride 105.0 mmol/L (98-107) 09/08/18 16:38 Glucose 85 mg/dl (65-105) 09/08/18 16:38 Lactate 1.1 mmol/L (0.7-2.1) 09/08/18 16:38 Crit Value Called To Rosy srivastava rn 09/08/18 16:38 Crit Value Called By Aiden 09/08/18 16:38 Crit Value Read Back Y 09/08/18 16:38 Blood Gas Notified Time 1642 09/08/18 16:38 Sodium 136 mmol/L (132-148) 09/11/18 07:49 Potassium 4.1 mmol/L (3.6-5.2) 09/11/18 07:49 Chloride 107 mmol/L (98-107) 09/11/18 07:49 Carbon Dioxide 20 mmol/L (22-30) L 09/11/18 07:49 Anion Gap 14 (10-20) 09/11/18 07:49 BUN 11 mg/dL (7-17) 09/11/18 07:49 Creatinine 0.7 mg/dL (0.7-1.2) 09/11/18 07:49 Est GFR ( Amer) > 60 09/11/18 07:49 Est GFR (Non-Af Amer) > 60 09/11/18 07:49 Random Glucose 108 mg/dL (65-105) H 09/11/18 07:49 Serum Osmolality 282 mosm/kg (272-300) 09/09/18 08:17 Calcium 7.4 mg/dl (8.6-10.4) L 09/11/18 07:49 Phosphorus 1.1 mg/dL (2.5-4.5) L 09/11/18 07:49 Magnesium 1.9 mg/dL (1.6-2.3) 09/11/18 07:49 Iron 20 ug/dL (37-170) L 09/09/18 08:17 TIBC 180 ug/dL (250-450) L 09/09/18 08:17 % Saturation 11 (20-55) L 09/09/18 08:17 Ferritin 104.0 ng/mL 09/08/18 23:15 Total Bilirubin 0.2 mg/dL (0.2-1.3) 09/11/18 07:49 AST 26 U/L (14-36) 09/11/18 07:49 ALT 21 U/L (9-52) 09/11/18 07:49 Alkaline Phosphatase 64 U/L (38-126) 09/11/18 07:49 Total Protein 5.5 g/dL (6.3-8.3) L 09/11/18 07:49 Albumin 2.8 g/dL (3.5-5.0) L 09/11/18 07:49 Globulin 2.6 gm/dL (2.2-3.9) 09/11/18 07:49 Albumin/Globulin Ratio 1.1 (1.0-2.1) 09/11/18 07:49 Vitamin B12 > 1000 pg/mL (239-931) H 09/08/18 23:15 25-OH Vitamin D Total 47.4 NG/ML (30.0-100.0) 09/10/18 07:28 Folate > 20.0 ng/mL 09/08/18 23:15 Procalcitonin 0.16 NG/ML (0.19-0.49) L 09/08/18 17:30 Venous Blood Potassium 6.2 mmol/L (3.6-5.2) H* 09/08/18 16:38 Urine Color Yellow (YELLOW) 09/11/18 06:36 Urine Clarity Clear (Clear) 09/11/18 06:36 Urine pH 5.0 (5.0-8.0) 09/11/18 06:36 Ur Specific [place] 1.017 (1.003-1.030) 09/11/18 06:36 Urine Protein Negative mg/dL (NEGATIVE) 09/11/18 06:36 Urine Glucose (UA) Normal mg/dL (Normal) 09/11/18 06:36 Urine Ketones Negative mg/dL (NEGATIVE) 09/11/18 06:36 Urine Blood 1+ (NEGATIVE) H 09/11/18 06:36 Urine Nitrate Negative (NEGATIVE) 09/11/18 06:36 Urine Bilirubin Negative (NEGATIVE) 09/11/18 06:36 Urine Urobilinogen Normal mg/dL (0.2-1.0) 09/11/18 06:36 Ur Leukocyte Esterase Trace Pamela/uL (Negative) 09/11/18 06:36 Urine WBC (Auto) 2 /hpf (0-5) 09/11/18 06:36 Urine RBC (Auto) 6 /hpf (0-3) H 09/11/18 06:36 Ur Squamous Epith Cells 7 /hpf (0-5) H 09/08/18 22:06 Hyaline Casts 6-10 /lpf (0-2) H 09/08/18 22:06 Urine Osmolality 440 mosm/kg (300-1000) 09/09/18 08:32 Stool Occult Blood Positive (NEGATIVE) H 09/09/18 08:44 Stool Leukocytes, Qual Positive (NEGATIVE) H 09/08/18 16:17 C. difficile Ag & Toxin Negative (NEGATIVE) 09/09/18 04:59 Giardia Antigen Not detected (Not Detected) 09/08/18 16:17 Attending/Attestation - Attestation I have personally seen and examined this patient.: Yes I have fully participated in the care of the patient.: Yes I have reviewed all pertinent clinical information, including history, physical exam and plan: Yes Notes (Text): This computer entry is for 09/11/18. Please disregard initiation date September 10 this discharge is intended for September 11. Patient seen and examined case discussed with medical secretary receptionist. Patient seen this morning she is awake alert oriented she does remember us from yesterday. She reports her stool is much better more formed she is able to get to the commode as opposed to initiating the when she was having run some swelling on herself on the day of admission. I did speak with patient's nurse as well to confirm that the diarrhea has more or less been improving and becoming less frequent. I spoke with Dr. Cardona this morning as well to complete as Cipro and Flagyl therapy for at least 10 days total patient to follow-up within 1 month with his office to schedule for an outpatient colonoscopy. AlsoGI standpoint patient may continue aspirin 81 mg as prophylaxis given that she has a history of paroxysmal A. fib. Eliquis is still on hold and have patient has not even been taking Eliquis Eliquis due to insurance issues. Note patient has been off antihypertensive therapy given the diarrhea causing the dehydration. Blood pressure improving normal without fluids and patient is tolerating diet better. Note patient has a history of paroxysmal atrial fibrillation by her outpatient drawer maker Dr. Coppola. EKG on admission normal sinus. Patient will be started on aspirin cleared by GI. Eliquis held given the rectal bleeding. Unable to restart rate control agent given blood pressure. Hyponatremia resolved. Renal function recovered while on IV fluids. patient is urinating. Patient and I spoke with patient's daughter yesterday that they will follow-up with outpatient neurologist I suggested Dr. Peterson in terms of possible dementia work-up. They want to have the diarrhea issue call him first before proceeding for dementia work-up as outpatient. Medications upon discharge: 1) Ciprofloxacin 500mg PO BID for ten days to complete 14 day course 2) Flagyl 500mg PO TID for ten days to complete 14 day course 3) Bacid 1 tab PO BID as probiotic 4) Aspirin 81mg PO daily 5) pepcid 20mg PO bid Held on discharge: Note patient previously on Norvasc 5 once a day, valsartan 160 mg p.o. once a d ay, metoprolol 25 mg once a day. Which were held during admission given that the blood pressure need to improve secondary to fluid loss secondary to dehydration. Patient advised follow-up with PMD within 1 week to restart BP meds once she continues to recover from the diarrhea. This is a summary of patient's hospitalization. Please see EMR for full detail of record. Discharge diagnoses: 1. Colitis, acute-->Stable Completed CT scan showed colitis GI consulted and evaluated; stable for standpoint for dc 1) Ciprofloxacin 500mg PO BID for ten days to complete 14 day course 2) Flagyl 500mg PO TID for ten days to complete 14 day course 3) Bacid 1 tab PO BID as probiotic Follow-up with GI in 1 month for repeat colonoscopy 2. Acute Renal insuffiency-->Resolved 3. Hypovolemia hyponatremia-->resolved 4. Dehydration-->resolved Pt hypotensive 90s SBP 50s DBP in the ED Improving while on IV fluids 5. Paroxysmal Afib, chronic Dr. Coppola as an outpatient when she was diagnosed with paroxysmal atrial fibrillation based on noted complaint of palpitations at [facility] appointment EKG shows NSR Hold home Metoprolol in light of hypotension. May need to restart low-dose metoprolol pending blood pressure CHADSVASC2 score is 2; HASBLED is 1 No eliquis due to insurance issues per GI, patient may restart Aspirin 81mg PO daily on admission Beta sal held since blood pressure is recovering-->f/u 1 week for bp check 6. Anemia, chronic Hgb/Hct is 9.1/26.5 on admission (baseline is 9-10) * Stable in 9s Patient will need to resume her home iron supplements when she has completed antibiotic therapy. 7. Bereavement; acute stress disorder, acute Patient has a very supportive sister in terms of her children as well as her alevism Pt's in April. Daughter reports pt has had decreased PO intake and increased sleep since his passing. Continue to monitor Pastoral care consult Daughter is amenable to dementia workup as outpatient once patient recovers from her colitis 8. PPx: GI: Pepcid 20 mg IV twice daily VTE: chemical ppx contraindicated due to anemia, SCDs Lactobacillus 1 tab p.o. twice daily
--- NOTE | 2018-09-10 13:44 | CP.PCM.PN ---
<Cesar Cuellar - Last Filed: 09/10/18 13:41> Subjective - Date & Time of Evaluation Date of Evaluation: 09/10/18 Time of Evaluation: 13:41 - Subjective Subjective: PGY-[address] Madison Patient seen and examined at bedside. No acute events overnight. Patient still c/o watery stools. Plan to advance diet today and follow up to see how patient tolerates. Currently tolerating clear liquids. Denies n/v, fevers, chills, chest pain, headache. Objective - Vital Signs/Intake and Output Vital Signs (last 24 hours): Temp Pulse Resp BP Pulse Ox 97.5 F L 70 20 132/77 97 09/10/18 07:35 09/10/18 07:35 09/10/18 07:35 09/10/18 07:35 09/10/18 07:35 Intake and Output: 09/10/18 09/10/18 06:59 18:59 Intake Total 1810 Output Total 305 Balance 1505 - Medications Medications: Current Medications Calcium/Vitamin D (Oscal-D 250 Mg-125 Units Tab) 1 tab PO DAILY [facility] Last Admin: 09/10/18 10:38 Dose: 1 tab Famotidine (Pepcid) 20 mg IVP DAILY [facility] Last Admin: 09/10/18 10:39 Dose: 20 mg Folic Acid (Folic Acid) 1 mg PO DAILY [facility] Last Admin: 09/10/18 10:39 Dose: 1 mg Sodium Chloride (Sodium Chloride 0.9%) 1,000 mls @ 75 mls/hr IV .[id number] [facility] Last Admin: 09/10/18 10:51 Dose: Not Given Piperacillin Sod/Tazobactam Sod (Zosyn 2.25 Gm Iv Premix) 2.25 gm in 50 mls @ 100 mls/hr IVPB Q8H [facility]; Protocol Last Admin: 09/10/18 11:24 Dose: 100 mls/hr Metronidazole (Flagyl) 500 mg in 100 mls @ 100 mls/hr IVPB Q8H [facility]; Protocol Last Admin: 09/10/18 10:40 Dose: 100 mls/hr Potassium Phosphate 15 mmole/ (Sodium Chloride) 255 mls @ 42.5 mls/hr IVPB ONCE ONE Stop: 09/10/18 15:59 Last Admin: 09/10/18 10:50 Dose: 42.5 mls/hr Lactobacillus Acidophilus (Lactobacillus) 1 cap PO BID [facility] Last Admin: 09/10/18 10:34 Dose: 1 cap - Labs Labs: 09/10/18 06:40 09/10/18 06:40 PT 15.4 SECONDS (9.7-12.2) H 09/08/18 17:30 INR 1.4 09/08/18 17:30 APTT 31.8 SECONDS (21-34) 09/08/18 17:30 - Constitutional Appears: Non-toxic, No Acute Distress - Head Exam Head Exam: ATRAUMATIC, NORMOCEPHALIC - Eye Exam Eye Exam: EOMI, Normal appearance - ENT Exam ENT Exam: Mucous Membranes Moist - Respiratory Exam Respiratory Exam: Clear to Ausculation Bilateral, NORMAL BREATHING PATTERN. absent: Rhonchi, Wheezes - Cardiovascular Exam Cardiovascular Exam: REGULAR RHYTHM, +S1, +S2 - GI/Abdominal Exam GI & Abdominal Exam: Soft, Normal Bowel Sounds. absent: Tenderness - Extremities Exam Extremities Exam: Normal Inspection. absent: Pedal Edema, Tenderness - Neurological Exam Neurological Exam: Alert, Awake, Oriented x3 - Psychiatric Exam Psychiatric exam: Normal Affect, Normal Mood - Skin Skin Exam: Dry, Intact Assessment and Plan - Assessment and Plan (Free Text) Assessment: This is an 83-year-old female with a past medical history of HTN, paroxysmal a fib, seronegative arthritis, diverticulosis, colitis, and hemorrhoids who presented initiall to the emergency department with her daughter for 2 months of diarrhea that has worsened over the past [address] a/p c/w acute colitis. Patient with active but stable GI bleed, GI following. Plan: Colitis, acute; GI Bleed Imaging -Abdominal CT 09/09: diffuse mild mural thickening of the left colon with luminal narrowing probably representing colitis. -Hx diverticulitis, colitis -Leukocytosis at 13, bandemia of 17 on admission. Afebrile, no tachycardia. Initial lactate 1.1 -Lactobacillus BID -C diff negative -Procalcitonin 0.16 -Stool leukocytes positive Micro -ova and parasite - negative x1 -Stool cx- f/u -Blood cultures negative x24 hours -GI, Dr. Cardona, consulted --Diet advanced to regular diet --Per GI, GI bleed is stable (patient had recent outpatient colonoscopy) --GI recommends to advance diet tonight and consider discharge in the morning if patient tolerates Abx -Renally dosed Zosyn 2.25 g IVPB q8h (09/08) Meds -Pepcid 20mg IV BID Anemia, acute on chronic -Hgb/Hct is 9.1/26.5 on admission (baseline is 9-10) -Hold home ferrous sulfate in light of acute infection -Continue home Folate 1 mg PO daily -FOBT +. F/u repeat. GI following Meds -Pepcid 20mg IV BID Dehydration, secondary to diarrhea due to colitis -Pt hypotensive 90s SBP 50s DBP in the ED -100 SBP, stable, fluids at 75/hr -NS IVF as above -Hold home valsartan, amlodipine, metoprolol -Continue to monitor Electrolyte disturbances -2/2 GI fluid loss -Replete lytes -Monitor CMP Meds -NS IVF @ 75 cc/hr -Calcium Carbonate/Vit D once daily Paroxysmal Afib, chronic -EKG shows NSR -Hold home Metoprolol in light of hypotension -CHADSVASC2 score is 2; HASBLED is 1 -Per GI, okay for patient to be discharged on ASA 81 daily given controlled GI bleed SUMA, acute; Oliguria, acute; Resolved -Likely secondary to hypotension/prerenal -BUN/Cr is 94/1.7 on admission -Bladder scan qshift with order to straight cath if retaining urine (note patient has been retaining urine) -BUN/Cr improving Meds -NS IVF @ 75 cc/hr Acute stress disorder, acute -Pt's in April. Daughter reports pt has had decreased PO intake and increased sleep since his passing. -Continue to monitor PPx: -GI: Protonix 20 mg IV BID -VTE: chemical ppx contraindicated due to anemia, SCDs -Lactobacillus Dispo: GI recommends to advance diet tonight and consider discharge in the morning if patient tolerates Case discussed with Dr. Los Cuellar, PGY-1 <Zina Madison V - Last Filed: 09/10/18 17:31> Objective - Vital Signs/Intake and Output Vital Signs (last 24 hours): Temp Pulse Resp BP Pulse Ox 98.8 F 78 20 109/67 98 09/10/18 16:00 09/10/18 16:00 09/10/18 16:00 09/10/18 16:00 09/10/18 16:00 Intake and Output: 09/10/18 09/10/18 06:59 18:59 Intake Total 1810 550 Output Total 305 Balance 1505 550 - Medications Medications: Current Medications Calcium/Vitamin D (Oscal-D 250 Mg-125 Units Tab) 1 tab PO DAILY [facility] Last Admin: 09/10/18 10:38 Dose: 1 tab Famotidine (Pepcid) 20 mg IVP DAILY [facility] Last Admin: 09/10/18 10:39 Dose: 20 mg Folic Acid (Folic Acid) 1 mg PO DAILY [facility] Last Admin: 09/10/18 10:39 Dose: 1 mg Sodium Chloride (Sodium Chloride 0.9%) 1,000 mls @ 75 mls/hr IV .[id number] [facility] Last Admin: 09/10/18 10:51 Dose: Not Given Piperacillin Sod/Tazobactam Sod (Zosyn 2.25 Gm Iv Premix) 2.25 gm in 50 mls @ 100 mls/hr IVPB Q8H [facility]; Protocol Last Admin: 09/10/18 11:24 Dose: 100 mls/hr Metronidazole (Flagyl) 500 mg in 100 mls @ 100 mls/hr IVPB Q8H [facility]; Protocol Last Admin: 09/10/18 10:40 Dose: 100 mls/hr Lactobacillus Acidophilus (Lactobacillus) 1 cap PO BID [facility] Last Admin: 09/10/18 10:34 Dose: 1 cap Potassium Chloride (K-Dur 20 Meq Er Tab) 40 meq PO ONCE ONE Stop: 09/10/18 17:16 Potassium Phos/Sodium Phos (Neutra-Phos) 1 pkt PO TIDAC [facility] Stop: 09/11/18 07:31 - Labs Labs: 09/10/18 06:40 09/10/18 06:40 PT 15.4 SECONDS (9.7-12.2) H 09/08/18 17:30 INR 1.4 09/08/18 17:30 APTT 31.8 SECONDS (21-34) 09/08/18 17:30 Attending/Attestation - Attestation I have personally seen and examined this patient.: Yes I have fully participated in the care of the patient.: Yes I have reviewed all pertinent clinical information, including history, physical exam and plan: Yes Notes (Text): Patient seen, examined case discussed with medical review specialist. Patient seen at bedside this morning with her daughter. I spoke with patient's nurse Tri who noted that the bowel movement now is soft but dark. Noted some bloody bowel movements. She is not needed to be straight cathed this morning that she is urinating. When I spoke with the patient she did report that she did refuse a colonoscopy and I did indicate to her with the assistance with her daughter that she will likely need a repeat colonoscopy in 6 to 8 weeks because it really does allow for the GI doctor to find what is the cause for her colitis since we do not know. We see that she appears to be appropriate responding with the antibiotics given that her white count is normalized however we still do not know why she is having this. Patient reports that she sometimes has an uneasiness in the stomach to tolerate the IC strawberry liquid that she had this morning would like to try a regular diet I did speak with the GI fellow who noted that it would be all right to advance diet. Potassium is low likely due to her developed diarrheal movements I did supplement with K-Dur supplement as well as a K-Phos because her phosphorus is also low. We will monitor her today since we are advancing diet to see how she feels in terms of her diarrheal movements patient herself is little bit inconsistent with her history have to speak with her nurse in order to get better impression what is going on with the diarrhea. Patient is on day 3 of Zosyn and day 2 of Flagyl. Kidney function has recovered Plan for possible discharge tomorrow. Update assessment and plan noted below Assessment/plan 1. Colitis, acute Prior history Hx diverticulitis, colitis On admission leukocytosis at 13, bandemia of 17 on admission. Afebrile, no tachycardia. Lactate is 1.[address] shows diffuse mild mural thickening of the left colon with luminal narrowing probably representing colitis. Received Flagyl 500 mg IVPB x1, Zosyn 2.25 g IVPB x1 in the ED. Renally dosed Zosyn 2.25 g IVPB q8h (09/08) Flagyl 500mg IV q8 (09/09) Lactobacillus BID GI, Dr. Cardona, consulted. Patient's GI GI salon professional F/u lactoferrin, ova and parasite x3, FOBT, stool culture, c. diff, procalcitonin, stool leukocytes, Blood culture x2 She does have a prior history of rectal bleeding likely hemorrhoidal when she is Preparation H 2. SUMA, acute Oliguria, acute Likely secondary to dehydration secondary to diarrhea BUN/Cr is 94/1.7 on admission * Improving to 1.4 He has received 2 L boluses we will continue maintenance fluids NS IVF as below 3. Hypovolemia hyponatremia Patient appears clinically dehydrated 128 on admission * Improving while on IV fluids NS IVF 1L Bolus x2 in the ED, continue NS IVF at 75 mL/hr We will continue IV maintenance fluids Fall precautions 4. Dehydration, secondary to diarrhea due to colitis Pt hypotensive 90s SBP 50s DBP in the ED Improving while on IV fluids 5. Paroxysmal Afib, chronic Dr. Coppola as an outpatient when she was diagnosed with paroxysmal atrial fibrillation based on noted complaint of palpitations at [facility] appointment EKG shows NSR Hold home Metoprolol in light of hypotension. May need to restart low-dose metoprolol pending blood pressure CHADSVASC2 score is 2; HASBLED is 1 No ASA as per family because pt is had bleeding hemorrhoids approximately 3 months ago No eliquis due to insurance issues To follow-up with GI to see when patient will be able to use at least aspirin: Hemoglobin is slowly downtrending. Ferritin is within normal she will likely need to continue iron supplementation unclear if patient can resume at least an aspirin or not pain patient GI is working towards her outpatient colonoscopy in the future 6. Anemia, chronic Hgb/Hct is 9.1/26.5 on admission (baseline is 9-10) * Downtrending slightly will need to continue monitoring Hold home ferrous sulfate in light of acute infection Continue home Folate 1 mg PO daily Ferritin within normal Reticulocyte index is low Occult blood is positive 7. Bereavement; acute stress disorder, acute Patient has a very supportive sister in terms of her children as well as her urch Pt's in April. Daughter reports pt has had decreased PO intake and increased sleep since his passing. Continue to monitor Pastoral care consult Will hold off for psychiatry at this time Daughter is amenable to dementia workup as outpatient once patient recovers from her colitis 8. PPx: GI: Pepcid 20 mg IV twice daily VTE: chemical ppx contraindicated due to anemia, SCDs Lactobacillus 1 tab p.o. twice daily Disposition: Patient to remain in hospital to benefit from IV Abx as well as advancing diet. We will observe patient day; replete electrolytes; We will follow-up on to see if patient is appropriate for possible discharge with p.o. antibiotic and follow-up with GI for repeat colonoscopy for 6 to 8 weeks
[2018-09-10] MEDS ORDERED: Potassium Chloride 20 mEq ER Tab PO ONE (17:15)
[2018-09-10] MEDS: Potassium & Sodium Phosphate PO SCH (17:17)
[2018-09-11] MEDS: Piperacill/Tazo 2.25gm in Dex 2.25 GM/50 ML BAG IVPB SCH ×2 (01:30→09:50)
[2018-09-11] MEDS: Sodium Chloride 0.9% 1,000 ML IV SCH (02:00)
[2018-09-11] MEDS: metroNIDAZOLE IV 500 mg/100 ml 500 MG/100 ML BAG IVPB SCH (03:30)
[2018-09-11 06:51] LABS: URINE BILIRUBIN NEGATIVE (NEGATIVE); URINE BLOOD 1+ (NEGATIVE); URINE CLARITY Clear (Clear); URINE COLOR Yellow (YELLOW); URINE GLUCOSE (UA) NORMAL (Normal); URINE LEUKOCYTE ESTERASE TRACE Leu/uL (Negative); URINE PROTEIN NEGATIVE (NEGATIVE); URINE UROBILINOGEN NORMAL mg/dL (0.2-1.0)
[2018-09-11] MEDS: Potassium & Sodium Phosphate PO SCH ×3 (07:30→13:15)
[2018-09-11 08:16] LABS: ALB/GLOB RATIO 1.1 (1.0-2.1); ALBUMIN 2.8 g/dL (3.5-5.0); ALT/SGPT 21 U/L (9-52); AST/SGOT 26 U/L (14-36); BLOOD UREA NITROGEN 11 mg/dL (7-17); CALCIUM 7.4 mg/dl (8.6-10.4); GFR NON-AFRICAN AMERICAN > 60
--- NOTE | 2018-09-11 08:35 | CP.PCM.PN ---
<Amn Roberta - Last Filed: 09/11/18 08:35> Subjective - Date & Time of Evaluation Date of Evaluation: 09/11/18 Time of Evaluation: 07:00 - Subjective Subjective: GI Fellow PGY5 Progress Note Pt seen and evaluated at bedside, pt reports no BM overnight. Tolerated regular diet for dinner. Pt confused, sundowning? ROS: A 12pt ROS was negative except as above. Objective - Vital Signs/Intake and Output Vital Signs (last 24 hours): Temp Pulse Resp BP Pulse Ox 98.2 F 91 H 20 130/74 99 09/11/18 08:17 09/11/18 08:17 09/11/18 08:17 09/11/18 08:17 09/11/18 08:17 Intake and Output: 09/11/18 09/11/18 06:59 18:59 Intake Total 940 Output Total 300 300 Balance -300 640 - Medications Medications: Current Medications Calcium/Vitamin D (Oscal-D 250 Mg-125 Units Tab) 1 tab PO DAILY [facility] Last Admin: 09/10/18 10:38 Dose: 1 tab Famotidine (Pepcid) 20 mg IVP DAILY [facility] Last Admin: 09/10/18 10:39 Dose: 20 mg Folic Acid (Folic Acid) 1 mg PO DAILY [facility] Last Admin: 09/10/18 10:39 Dose: 1 mg Sodium Chloride (Sodium Chloride 0.9%) 1,000 mls @ 75 mls/hr IV .[id number] [facility] Last Admin: 09/11/18 02:00 Dose: 75 mls/hr Piperacillin Sod/Tazobactam Sod (Zosyn 2.25 Gm Iv Premix) 2.25 gm in 50 mls @ 100 mls/hr IVPB Q8H [facility]; Protocol Last Admin: 09/11/18 01:30 Dose: 100 mls/hr Lactobacillus Acidophilus (Lactobacillus) 1 cap PO BID [facility] Last Admin: 09/10/18 17:13 Dose: 1 cap - Labs Labs: 09/10/18 06:40 09/11/18 07:49 PT 15.4 SECONDS (9.7-12.2) H 09/08/18 17:30 INR 1.4 09/08/18 17:30 APTT 31.8 SECONDS (21-34) 09/08/18 17:30 - Constitutional Appears: Non-toxic, No Acute Distress, Confused - Head Exam Head Exam: ATRAUMATIC, NORMAL INSPECTION, NORMOCEPHALIC - Eye Exam Eye Exam: EOMI, Normal appearance, PERRL - ENT Exam ENT Exam: Mucous Membranes Moist, Normal Exam - Neck Exam Neck Exam: Full ROM, Normal Inspection - Respiratory Exam Respiratory Exam: Clear to Ausculation Bilateral, NORMAL BREATHING PATTERN - Cardiovascular Exam Cardiovascular Exam: REGULAR RHYTHM, RRR, +S1, +S2 - GI/Abdominal Exam GI & Abdominal Exam: Soft, Normal Bowel Sounds. absent: Tenderness - Extremities Exam Extremities Exam: Full ROM, Normal Inspection - Neurological Exam Neurological Exam: Alert, Awake, Oriented x3 - Psychiatric Exam Psychiatric exam: Normal Affect, Normal Mood - Skin Skin Exam: Dry, Intact, Normal Color, Warm Assessment and Plan - Assessment and Plan (Free Text) Assessment: 1. Abdominal pain, diarrhea 2. Colitis 2. SUMA 3. Chronic Anemia Plan: On admission leukocytosis at 13, bandemia of 17 on admission, improving WBC Abdominal CT shows diffuse mild mural thickening of the left colon with luminal narrowing probably representing colitis. Pt can be changed to cipro/flagyl on discharge po for 7 more days, discussed with primary team Stool studies in the office were negative 2 weeks ago and so far c diff negative She does have a prior history of rectal bleeding likely hemorrhoids Anemia, with Hgb stable, no active GI bleeding Regular diet as tolerated Will need outpt colonoscopy in 6-8 wks after colitis Pt okay for dc home today <BrendanAidan Chani - Last Filed: 09/11/18 13:46> Objective - Vital Signs/Intake and Output Vital Signs (last 24 hours): Temp Pulse Resp BP Pulse Ox 98.2 F 91 H 20 130/74 99 09/11/18 08:17 09/11/18 08:17 09/11/18 08:17 09/11/18 08:17 09/11/18 08:17 Intake and Output: 09/11/18 09/11/18 06:59 18:59 Intake Total 940 Output Total 300 300 Balance -300 640 - Medications Medications: Current Medications Calcium/Vitamin D (Oscal-D 250 Mg-125 Units Tab) 1 tab PO DAILY [facility] Last Admin: 09/11/18 09:42 Dose: 1 tab Famotidine (Pepcid) 20 mg IVP DAILY [facility] Last Admin: 09/11/18 09:43 Dose: 20 mg Ferric Sodium Gluconate Complex (Ferrlecit) 125 mg IVPB ONCE ONE Stop: 09/12/18 11:31 Folic Acid (Folic Acid) 1 mg PO DAILY [facility] Last Admin: 09/11/18 09:42 Dose: 1 mg Piperacillin Sod/Tazobactam Sod (Zosyn 2.25 Gm Iv Premix) 2.25 gm in 50 mls @ 100 mls/hr IVPB Q8H [facility]; Protocol Last Admin: 09/11/18 09:50 Dose: 100 mls/hr Lactobacillus Acidophilus (Lactobacillus) 1 cap PO BID [facility] Last Admin: 09/11/18 09:42 Dose: 1 cap Potassium Phos/Sodium Phos (Neutra-Phos) 1 pkt PO TID [facility] Last Admin: 09/11/18 13:15 Dose: 1 pkt - Labs Labs: 09/11/18 07:49 09/11/18 07:49 PT 15.4 SECONDS (9.7-12.2) H 09/08/18 17:30 INR 1.4 09/08/18 17:30 APTT 31.8 SECONDS (21-34) 09/08/18 17:30 Attending/Attestation - Attestation I have personally seen and examined this patient.: Yes I have fully participated in the care of the patient.: Yes I have reviewed all pertinent clinical information, including history, physical exam and plan: Yes Notes (Text): 09/11/18 13:44 I have seen and examined patient with GI fellow. No acute events overnight, she is seen resting in bed comfortably. No bowel movements overnight, she has been tolerating PO diet without difficulty. Review of vitals from today shows tachycardia. Diarrhea, colitis Acute renal insufficiency - resolved Dementia Anemia - Diet as tolerated - Continue with antibiotic therapy to complete additional 7 day course - Suggest outpatient colonoscopy within 6-8 weeks following resolution of acute symptoms - No further planned GI intervention, will sign off case. Please reconsult as necessary, thank you.
[2018-09-11 08:53] LABS: BASO % 0.3 % (0.0-2.0); EOS # 0.2 K/uL (0.0-0.7); EOS % 2.1 % (0.0-4.0); LYMPH # 0.7 K/uL (1.0-4.3); LYMPH % 7.4 % (20.0-40.0); MEAN CELL VOLUME 89.3 fL (81.0-99.0); MEAN CORPUSCULAR HEMOGLOBIN 30.5 pg (27.0-31.0); MEAN CORPUSCULAR HGB CONC 34.1 g/dL (33.0-37.0); MEAN PLATELET VOLUME 9.1 fL (7.2-11.7); MONO # 0.7 K/uL (0.0-0.8); MONO % 7.2 % (0.0-10.0); NEUT # 7.7 K/uL (1.8-7.0); NRBC % 0.1 % (0.0-2.0); PLATELET COUNT 376 K/uL (130-400); RBC 2.94 Mil/uL (3.80-5.20); RED CELL DISTRIBUTION WIDTH 13.7 % (11.5-14.5); WHITE BLOOD COUNT 9.3 K/uL (4.8-10.8)
[2018-09-11] MEDS: Calcium-Vit D 250 mg-125 Units Tab UD PO SCH (09:42)
[2018-09-11] MEDS: Lactobacillus Acidophilus 500 MU Cap PO SCH (09:42)
[2018-09-11 09:44] LABS: ANISOCYTOSIS SLIGHT; BANDS 7 % (0-2); EOSINOPHIL 1 % (0-4); LYMPHOCYTE 5 % (20-40); MONOCYTE 4 % (0-10); MYELOCYTE 1 % (0-0); NEUTROPHIL 82 % (50-75); PLATELET ESTIMATE NORMAL (NORMAL); POIKILOCYTOSIS SLIGHT; TOTAL CELLS COUNTED 100
[2018-09-11 09:45] LABS: HYPOCHROMIC SLIGHT; TARGET CELLS SLIGHT
[2018-09-11 15:50] VITALS: BP 162/78; PULSE 88; TEMP 98.3; O2SAT 98
[2018-09-11] MEDS ORDERED: Lactobacillus Acidophilus 500 MU Cap PO SCH (18:45)
--- NOTE | 2018-09-11 18:45 | CP.PCM.PCO ---
Physician Communication Note - Physician Communication Note Physician Communication Note: patient d/c to [facility] today. please see discharge summary for detailed
[2018-09-12] MEDS ORDERED: Ferric Sodium Gluconat Complex 62.5 mg/5 ml Vial IVPB ONE (11:30)
[2018-09-15] MEDS ORDERED: Ergocalciferol 50,000 Intl Units Cap PO SCH (10:00)
== END 2018-09-11 16:53 | DRG 392 ==
LOC: C.ER 12:03 → C.9E 16:28 → C.3T 18:29
PROVIDERS: ADMIT Hospitalist; ATTEND Hospitalist
DX: K52.9 Noninfective gastroenteritis and colitis, unspecified (principal); E87.1 Hypo-osmolality and hyponatremia; N17.9 Acute kidney failure, unspecified; D64.9 Anemia, unspecified; E86.0 Dehydration; D50.9 Iron deficiency anemia, unspecified; F03.90 Unspecified dementia, unspecified severity, without behavioral disturbance, psychotic disturbance, mood disturbance, and anxiety; E86.1 Hypovolemia; F43.0 Acute stress reaction; I10 Essential (primary) hypertension; I48.0 Paroxysmal atrial fibrillation; M81.0 Age-related osteoporosis without current pathological fracture; Z63.4 Disappearance and death of family member; I95.9 Hypotension, unspecified; R63.4 Abnormal weight loss; M19.90 Unspecified osteoarthritis, unspecified site